=== PATIENT | male | born 1965 | race Caucasian/White ===

== ENCOUNTER 2018-03-28 12:18 | Inpatient (IN) | payer MEDICARE, OTHER ==
[~2018-03-28] VITALS: Ht 167.6 cm; Wt 73.0 kg
[2018-03-28] VITALS (25 sets, daily range): BP systolic 74–113; BP diastolic 53–90; PULSE 94–129; RESP 13–27; Ht 167.6 cm; Wt 73.0 kg
[2018-03-28] MEDS ORDERED: SODIUM CHLORIDE 0.9% 1L BAG IV* STA (12:31)
[2018-03-28] MEDS ORDERED: ONDANSETRON 4 MG INJ IV STA (12:40)
[2018-03-28] MEDS ORDERED: CEFTRIAXONE 1 GM/50 ML (PMX) 50 ML IVPB ONE (13:00)
[2018-03-28] MEDS ORDERED: OXYCODONE/ACETAMINOPHEN (5/325) TAB PO ONE (13:00)
[2018-03-28] MEDS ORDERED: IBUPROFEN 600 MG TAB PO ONE (13:00)
--- NOTE | 2018-03-28 13:18 | ERD ---
ER Documentation Chief Complaint Chief Complaint Near syncope, swollen hands and feet HPI 52-year-old man with a history of gastric carcinoma status post gastrectomy a few years ago presents with 1 month increasing bilateral lower extremity edema, mid abdominal discomfort which is been nonradiating and nonexertional, intermittent vomiting on a daily basis and he states today he had a syncopal episode while in the bathroom about 2 days of tactile fevers and generalized weakness.. Patient denies head trauma, no chest pain or shortness of breath, no cough or URI symptoms, no headache or blurry vision, no neck pain or stiffness. ROS All systems reviewed and are negative except as per history of present illness. Medications Home Meds Reported Medications Mirtazapine* (Mirtazapine*) 30 Mg Tablet, 30 MG PO HS, TAB 03/28/18 Allergies Allergies: Coded Allergies: No Known Allergy (Unverified , 03/28/18) PMhx/Soc Gastric carcinoma status post gastrectomy History of Surgery: Yes (stomach surgery r/t ca) Hx Cardiac Disorders: Yes (htn) Hx Miscellaneous Medical Probl: Yes (stomach CA) Hx Alcohol Use: No Hx Substance Use: No Hx Tobacco Use: No Smoking Status: Never smoker FmHx Family History: No diabetes Physical Exam Vitals Vital Signs Date Temp Pulse Resp B/P (MAP) Pulse Ox O2 O2 Flow FiO2 Time Delivery Rate 03/28/18 100.0 121 17 82/68 (73) 100 Room Air 15:37 03/28/18 123 18 88/65 (73) 100 Room Air 15:20 03/28/18 100.1 120 19 73/54 (60) 97 Room Air 14:57 03/28/18 124 17 70/52 (58) 99 Room Air 14:21 03/28/18 101.1 131 17 76/56 (63) 100 Room Air 14:03 03/28/18 145 24 116/88 100 Room Air 13:27 (97) 03/28/18 103.6 13:04 03/28/18 103.6 134 23 88/60 (69) 98 Room Air 12:28 03/28/18 103.0 133 20 71/58 (62) 100 12:26 Physical Exam GENERAL: Well-developed, dehydrated, febrile HEENT: Dry mucous membranes, pale conjunctiva, no Kernig sign, no jaundice or icterus, no submandibular induration, and no pharyngeal erythema NEURO: Alert and oriented 3, cranial nerves II through XII intact bilaterally, pupils equal round reactive to light, no focal deficits or facial asymmetry, sensation intact distally Strength 5/5 in upper and lower extremities bilaterally CARDIAC: Tachycardic and regular, no murmurs rubs or gallops LUNGS: Clear bilaterally no wheezing crackles or stridor ABDOMEN: Soft nontender, no guarding, no rigidity, no rebound, no psoas sign no obturator sign. SKIN: Warm and dry to touch, no abrasions, contusions, or hematomas, no lacerations, no ecchymosis, no target lesions, and without ulcers EXTREMITIES: No clubbing cyanosis, 3+ pitting edema in the lower extremities bilaterally as well as dependent edema to the upper extremities, calves are bilaterally symmetrical, no Homans sign, no popliteal cord sign. Distal pulses equal and bilateral PSYCH: Normal affect without agitation or irritability Result Diagram: 03/28/18 1255 03/28/18 1255 Results 24 hrs Laboratory Tests Test 03/28/18 12:46 03/28/18 12:55 03/28/18 15:08 POC Venous Lactate 9.8 mmol/L White Blood Count 1.7 10^3/ul Red Blood Count 2.65 10^6/ul Hemoglobin 8.2 g/dl Hematocrit 24.9 % Mean Corpuscular Volume 94.0 fl Mean Corpuscular Hemoglobin 30.9 pg Mean Corpuscular 32.9 g/dl Hemoglobin Concent Red Cell Distribution Width 19.3 % Platelet Count 206 10^3/UL Mean Platelet Volume 9.8 fl Immature Granulocytes % 0.600 % Neutrophils % % Segmented Neutrophils % (Manual) 25 % Band Neutrophils % (Manual) 48 % Lymphocytes % % Lymphocytes % (Manual) 4 % Reactive Lymphocytes % (Manual) 2 % Monocytes % % Monocytes % (Manual) 3 % Eosinophils % % Basophils % % Metamyelocytes % (manual) 12 % Myelocytes % (Manual) 7 % Nucleated Red Blood Cells % 1 % Immature Granulocytes # 0.010 10^3/ul Neutrophils # 10^3/ul Neutrophils # (Manual) 0.4 10^3/ul Band Neutrophils # 0.8 10^3/ul Lymphocytes (Manual) 0.0 10^3/ul Lymphocytes # 10^3/ul Reactive Lymphocytes # 0.0 10^3/ul Monocytes # 10^3/ul Monocytes # (Manual) 0.0 10^3/ul Eosinophils # 10^3/ul Basophils # 10^3/ul Metamyelocytes # 0.2 10^3/ul Myelocytes # 0.1 10^3/ul Nucleated Red Blood Cells # 10^3/ul White Cell Morphology Comment @See below Platelet Estimate NORMAL Giant Platelets 5 % Polychromasia 1+ Hypochromasia 1+ Poikilocytosis 2+ Anisocytosis 2+ Macrocytosis 2+ Target Cells 1+ Red Cell Morphology Comment @See below Prothrombin Time 28.7 Sec Prothrombin Time Ratio 2.2 INR International 2.70 Normalized Ratio Activated Partial Thromboplast 49.2 Sec Time Sodium Level 131 mmol/L Potassium Level 4.3 mmol/L Chloride Level 98 mmol/L Carbon Dioxide Level 18 mmol/L Anion Gap 15 Blood Urea Nitrogen 9 mg/dl Creatinine 1.46 mg/dl Est Glomerular Filtrat 50 mL/min Rate mL/min Glucose Level 79 mg/dl Lactic Acid Level 13.0 mmol/L Calcium Level 7.2 mg/dl Total Bilirubin 0.5 mg/dl Direct Bilirubin 0.00 mg/dl Indirect Bilirubin 0.5 mg/dl Aspartate Amino 33 IU/L Transf (AST/SGOT) Alanine 18 IU/L Aminotransferase (ALT/SGPT) Alkaline Phosphatase 83 IU/L Troponin I < 0.012 ng/ml Total Protein 4.1 g/dl Albumin 1.4 g/dl Globulin 2.70 g/dl Albumin/Globulin Ratio 0.51 Lipase < 10 U/L Urine Color MELO Urine Clarity CLOUDY Urine pH 5.0 Urine Specific [place] 1.019 Urine Ketones TRACE mg/dL Urine Nitrite NEGATIVE mg/dL Urine Bilirubin 1+ mg/dL Urine Urobilinogen 2+ mg/dL Urine Leukocyte Esterase NEGATIVE Radha/ul Urine Microscopic RBC 5 /HPF Urine Microscopic WBC 5 /HPF Urine Bacteria FEW /HPF Urine Hyaline Casts FEW /HPF Urine Mucus FEW /HPF Urine Hemoglobin NEGATIVE mg/dL Urine Glucose NEGATIVE mg/dL Urine Total Protein 2+ mg/dl Current Medications Medications Dose Sig/Reina Start Time Status Last (Trade) Ordered Route PRN Stop Time Admin Dose Reason Admin Sodium 3,000 ml BOLUS OVER 2 03/28/18 DC 03/28/18 Chloride HOURS STAT 12:31 13:05 (NS) IV* 03/28/18 12:32 Ondansetron 4 mg ONCE STAT 03/28/18 DC 03/28/18 HCl (Zofran IV 12:40 13:04 Inj) 03/28/18 12:45 Ceftriaxone 50 ml @ ONCE ONCE 03/28/18 DC 03/28/18 Sodium 100 mls/hr IVPB 13:00 13:05 03/28/18 13:29 Ibuprofen 600 mg ONCE ONCE 03/28/18 DC 03/28/18 (Motrin) PO 13:00 13:04 03/28/18 13:01 Oxycodone/ 1 tab ONCE ONCE 03/28/18 DC 03/28/18 Acetaminophen PO 13:00 13:04 (Percocet 03/28/18 13:01 (5/ 325)) 10 mg ONCE ONCE 03/28/18 DC 03/28/18 Metoclopramid IV 14:00 14:01 e HCl 03/28/18 14:01 (Reglan) 250 ml @ ONCE STAT 03/28/18 03/28/18 Norepinephrin 7.5 mls/hr IV 14:08 14:32 e 03/29/18 23:27 Sodium 1,000 ml @ Q20M ONCE 03/28/18 DC 03/28/18 Chloride 3,000 mls/hr IV 15:00 14:57 03/28/18 15:19 IV Flush 3 ml PER 03/28/18 UNV (NS 3 ml) PROTOCOL IV 16:00 Ondansetron 4 mg Q6H PRN 03/28/18 UNV HCl (Zofran IV NAUSEA 16:00 Inj) AND/OR VOMITING 650 mg Q6H PRN 03/28/18 UNV Acetaminophen PO PAIN 16:00 (Tylenol LEVEL 1-3 OR Tab) FEVER 1 tab Q6H PRN 03/28/18 UNV Acetaminophen PO MODERATE 16:00 / PAIN LEVEL Hydrocodone 4-6 Bitart ([place] (5/325)) Morphine 2 mg Q4H PRN 03/28/18 UNV Sulfate IV SEVERE 16:00 (morphine) PAIN LEVEL 7-10 Docusate 100 mg Q12H PRN 03/28/18 UNV Sodium PO 16:00 (Colace) CONSTIPATION Magnesium 30 ml DAILY PRN 03/28/18 UNV Hydroxide PO 16:00 (Milk Of Mag) CONSTIPATION Famotidine 20 mg Q12 IV 03/28/18 UNV (Pepcid Iv) 21:00 Lorazepam 0.5 mg Q6H PRN 03/28/18 UNV (Ativan) IV ANXIETY 16:00 Sodium 1,000 ml @ Q10H IV 03/28/18 UNV Chloride 100 mls/hr 15:51 Albuterol/ 3 ml Q4H RESP 03/28/18 UNV Ipratropium THERAPY PRN 16:00 (Duoneb) HHN SHORTNESS OF BREATH Vancomycin VANCOMYCIN NOTE XX 03/28/18 UNV HCl (Vanco PER PHARMACY 16:00 Iv Per Pharmacy) Hydralazine 10 mg Q6H PRN 03/28/18 UNV HCl IV ELEVATED 16:00 (Apresoline) BLOOD PRESSURE 1 tab Q5M PRN 03/28/18 UNV Nitroglycerin SL ANGINA 16:00 (Nitroglyceri n (Sl Tab) 0.4 Mg) Cefepime HCl 50 ml @ Q8 IVPB 03/28/18 UNV 100 mls/hr 22:00 250 ml @ TITRATE IV 03/28/18 UNV Norepinephrin 0.47 mls/hr 16:00 e 32 mg/Dextrose Procedures/MDM IV line was established patient was placed on security monitor rhythm strip rev ealed a sinus tachycardia at 130 bpm with upright P and T waves. Patient was febrile. Blood and urine cultures have been ordered results are pending I will follow-up. EKG performed, read by me revealed sinus tachycardia at 135 bpm, normal axis, narrow QRS complex, no concerning ST elevations or depressions noted 1 view chest x-ray performed, read by me reveals left lower lobe infiltrate and effusion with a calcification in the right lower lung, this may be a mass or metastasis Patient was initially hypotensive and I administered about 5 L normal saline IV, ibuprofen 600 mg p.o. for fever, Percocet 1 tablet p.o. for pain control, and Zofran 4 mg IV for nausea and vomiting, the patient later received metoclopramide 10 mg IV for continued vomiting. I also administered ceftriaxone 1 g IV x1. CBC was abnormal with a leukopenia less than 2 and mild anemia, electrolytes were unremarkable although calcium was low, liver function tests normal, troponin negative. Urinalysis was negative for infection. Lactic acid elevated at about 10 consistent with severe dehydration and sepsis. Central Line Placement by me: After the patient was consented and a time out was performed, appropriate hand hygiene was performed, the skin site was fully prepped and maximal sterile barrier technique was employed where the patient was sterilely draped, and the provider wore a mask and sterile gown and gloves. Anesthesia: 1% lidocaine locally Location: Right subclavian vein Device: Multiple lumen Technique: Seldinger technique. Secured with suture. Results: Venous return from all ports with easy saline flush. No complications. The entire guide wire retrieved and disposed of. ED Ultrasound: Central line placed by me using concurrent ultrasound guidance done using sterile technique. Real time image archived in the medical record confirms vascular anatomy. Repeat chest X-ray 1V Interpreted by me: Central line in SVC, Normal soft tissue, No evidence of pneumothorax. Again there is a left lower pleural effusion and infiltrate as well as a possible mass to the right lower lung CT scan of the abdomen and pelvis has been ordered results, IMPRESSION: *Exam is very limited without the use of intravenous contrast.* Highly recommend repeat examination with IV contrast when clinically feasible. If patient cannot receive contrast, then recommend obtaining an MRI of the abdomen/pelvis. Evidence of volume overload with interstitial edema, pleural effusions and large volume ascites. There is small bowel dilation with wall thickening, likely ileus and reactive changes from the ascites. Postsurgical changes involving the distal esophagus and in the left upper quadrant. Age-indeterminate compression deformity of the L1 vertebral body. Diffuse hepatic steatosis. Patient had to be placed on a norepinephrine drip for continued hypotension and is not stable at this time for further CT imaging although CT scan will have to be repeated with IV contrast and patient is more stable Patient's infectious symptoms have not stabilized and the patient is at risk of rapid decompensation. The patient will be admitted for careful hydration, antibiotic therapy, and infectious source control. SEVERE SEPSIS CRITERIA: Infectious source: Pulmonary and possibly gastrointestinal End organ damage indicated by: [Lactate > 2.0 mmol/L Hypotension (SBP < 90 or >40 mmHG drop or MAP < 65) SEPSIS MANAGEMENT Time of recognition of sepsis: Upon arrival. Time of recognition of severe sepsis: severe sepsis at this time. Time of recognition of septic shock: septic shock at this time. 3 HOUR BUNDLE Blood cultures x 2 before broad-spectrum antibiotics: Yes 30 ml/kg NS bolus completed Initial lactate 10 Repeat lactate 13 SEPTIC SHOCK ASSESSMENT: Yes lactic acid > 4.0 Yes persistent hypotension (SBP < 90 or 40 mmHg drop, MAP < 65) despite 30 mL/kg IV fluid bolus VOLUME REASSESSMENT FOR SEPTIC SHOCK: Reevaluation Time: 1600 Temp 98.7, BP 90/60, heart rate 110 bpm, respiratory rate 18 breaths/min, oxygen saturation 100% Heart tachycardic and regular Lungs mild bilateral crackles, no wheezing or stridor Skin warm & dry Cap Refill less than 2 seconds Peripheral pulses radially present PERSISTENT HYPOTENSION TREATMENT: Comfort care no Central line placed Vasopressor started with a norepinephrine drip I considered further perfusion assessment with CVP measurement, SCVO2, bedside ultrasound volume assessment, passive leg raise, trial of further fluid bolus. And proceeded with 30 ml/kg fluid bolus of NSS, broad spectrum antibiotics, and admission. CRITICAL CARE: Critical care time 55 minutes, this was time separate from other billable procedures. Emergent fluid management while maintaining close respiratory support. Provision of immediate and broad-spectrum antibiotic therapy. Simultaneous assessment for possible sources in order to direct targeted therapy. Consideration for invasive and chemical support to prevent cardiopulmonary collapse. Critical care time is independent of procedures performed. Accepting Care Team: Current data and ongoing care discussed. Time: Time of admission Primary Provider: Infectious disease, possibly surgery Consulting: Hospitalist Outstanding Data: none Departure Diagnosis: Primary Impression: Syncope Syncope type: unspecified Qualified Codes: R55 - Syncope and collapse Additional Impressions: Gastric carcinoma Septic shock Vomiting Vomiting type: unspecified Vomiting Intractability: intractable Nausea presence: with nausea Qualified Codes: R11.2 - Nausea with vomiting, unspecified Anemia Anemia type: unspecified type Qualified Codes: D64.9 - Anemia, unspecified Pleural effusion Ascites Ascites type: malignant Qualified Codes: R18.0 - Malignant ascites Condition: Critical JAYA ABREU MD Mar 28, 2018 13:18
[2018-03-28] MEDS ORDERED: MIRT30TA5 PO (13:45)
[2018-03-28] MEDS ORDERED: METOCLOPRAMIDE 10 MG INJ IV ONE (14:00)
[2018-03-28] MEDS ORDERED: NORepinephrine 8MG/250 ML (PMX 250 ML IV STA (14:08)
--- NOTE | 2018-03-28 14:39 | NUR ---
1325 PT NOT STABLE, TACHY. 1350 NEEDS MEDS, VOMITING. 1430 NOT READY, CENTRAL LINE PLACEMENT. NWC WHEN READY FOR CT.
[2018-03-28] MEDS ORDERED: SOD CHLORIDE 0.9% 1,000 ML IV ONE (15:00)
[2018-03-28] MEDS ORDERED: DOCUSATE SODIUM 100 MG CAP PO PRN (16:00)
[2018-03-28] MEDS ORDERED: NITROGLYCERIN (SL) 0.4 MG TAB SL PRN (16:00)
[2018-03-28] MEDS ORDERED: NACL 0.9% 3 ML SYG IV SCH (16:00)
[2018-03-28] MEDS ORDERED: hydrALAzine 20 MG INJ IV PRN (16:00)
[2018-03-28] MEDS ORDERED: morphine 4 MG/ML VIAL IV PRN (16:00)
[2018-03-28] MEDS ORDERED: ONDANSETRON 4 MG INJ IV PRN (16:00)
[2018-03-28] MEDS ORDERED: LORAZEPAM 2 MG INJ IV PRN (16:00)
[2018-03-28] MEDS ORDERED: HYDROCODONE/APAP (5/325) TAB PO PRN (16:00)
[2018-03-28] MEDS ORDERED: ALBUTEROL/IPRATROPIUM (NEB) 3 ML AMP HHN PRN (16:00)
[2018-03-28] MEDS ORDERED: ACETAMINOPHEN 325 MG TAB PO PRN (16:00)
[2018-03-28] MEDS ORDERED: VANCOMYCIN IV PER PHARMACY XX SCH (16:00)
[2018-03-28] MEDS ORDERED: MAGNESIUM HYDROXIDE 30ML CUP PO PRN (16:00)
--- NOTE | 2018-03-28 16:31 | CONS ---
Date/Time of Note Date/Time of Note DATE: 03/28/18 TIME: 16:23 Assessment/Plan Assessment/Plan Assessment/Plan very unfortunate catastrophically ill 52 m with h/o gastric cancer s/p partial resection reportedly in remission x 2 years. he is now admitted with a 2 month h/so of severe wekness and abd pain with albumin of 1.4 and a 3 days h/o of fever, vomiting and syncope presumed secndary to sepsis likely superimposed on maliganancy with severe malnutrition.he has severe hypotension, tachycardia. he was noted to have an elevated cr 1.4 with severe lactic acidosis and mild hyponatremia and hence renal consult I suspect his lactic acidosis is due to severe hypoperfusion due to hypotension secondary to intravascular volume depletion due to vomiting and reduction in cireculating effective blood volume due to 3rd spacing ass with severe hypoalbuminemia. r/o sepsis / ATN/ underlying malignancy * agressive hydration * start albumin q6 hrs * pressors to keep sbp>90 * urine lytes * ct abdomen when stable * abx/ panculture * monitor exam/labs * prognosis very gaurded * dw family Result Diagram: 03/28/18 1255 03/28/18 1255 Results 24hrs Laboratory Tests Test 03/28/18 12:46 03/28/18 12:55 03/28/18 15:08 POC Venous Lactate 9.8 *H White Blood Count 1.7 L Red Blood Count 2.65 L Hemoglobin 8.2 L Hematocrit 24.9 L Mean Corpuscular Volume 94.0 Mean Corpuscular Hemoglobin 30.9 Mean Corpuscular Hemoglobin Concent 32.9 Red Cell Distribution Width 19.3 H Platelet Count 206 Mean Platelet Volume 9.8 Immature Granulocytes % 0.600 H Neutrophils % Segmented Neutrophils % (Manual) 25 L Band Neutrophils % (Manual) 48 H Lymphocytes % Lymphocytes % (Manual) 4 L Reactive Lymphocytes % (Manual) 2 H Monocytes % Monocytes % (Manual) 3 Eosinophils % Basophils % Metamyelocytes % (manual) 12 H Myelocytes % (Manual) 7 H Nucleated Red Blood Cells % 1 H Immature Granulocytes # 0.010 Neutrophils # Neutrophils # (Manual) 0.4 L Band Neutrophils # 0.8 H Lymphocytes (Manual) 0.0 L Lymphocytes # Reactive Lymphocytes # 0.0 Monocytes # Monocytes # (Manual) 0.0 L Eosinophils # Basophils # Metamyelocytes # 0.2 H Myelocytes # 0.1 H Nucleated Red Blood Cells # White Cell Morphology Comment @See below Platelet Estimate NORMAL Giant Platelets 5 H Polychromasia 1+ Hypochromasia 1+ Poikilocytosis 2+ Anisocytosis 2+ Macrocytosis 2+ Target Cells 1+ Red Cell Morphology Comment @See below Prothrombin Time 28.7 H Prothrombin Time Ratio 2.2 INR International Normalized Ratio 2.70 Activated Partial Thromboplast Time 49.2 H Sodium Level 131 L Potassium Level 4.3 Chloride Level 98 Carbon Dioxide Level 18 L Anion Gap 15 H Blood Urea Nitrogen 9 Creatinine 1.46 H Est Glomerular Filtrat Rate mL/min 50 L Glucose Level 79 Lactic Acid Level 13.0 *H Calcium Level 7.2 L Total Bilirubin 0.5 Direct Bilirubin 0.00 Indirect Bilirubin 0.5 Aspartate Amino Transf (AST/SGOT) 33 Alanine Aminotransferase (ALT/SGPT) 18 Alkaline Phosphatase 83 Troponin I < 0.012 Total Protein 4.1 L Albumin 1.4 L Globulin 2.70 Albumin/Globulin Ratio 0.51 Lipase < 10 L Urine Color MELO Urine Clarity CLOUDY A Urine pH 5.0 Urine Specific [place] 1.019 Urine Ketones TRACE A Urine Nitrite NEGATIVE Urine Bilirubin 1+ H Urine Urobilinogen 2+ H Urine Leukocyte Esterase NEGATIVE Urine Microscopic RBC 5 Urine Microscopic WBC 5 Urine Bacteria FEW A Urine Hyaline Casts FEW A Urine Mucus FEW A Urine Hemoglobin NEGATIVE Urine Glucose NEGATIVE Urine Total Protein 2+ H Consultation Date/Type/Reason Admit Date/Time Reason for Consultation elevated cr, low uo, lactic acidosis Hx of Present Illness catastrophically ill ill 52 m with known gastric cancer s/p gastrectomy/ chemo and xrt 3 years ago. reportedly in remission x 2 years . was well until 2 months ago when he started to complain of abd discomfort, weakness, and le swelling. he did not seek medical attention. about 3 days ago, he started having severe weakness, fevers, chills and intractable vomiting. he eventually had a syncopal episode and was ottoniel pt was noted to be severely hypotensive and tachycardic. labs revealed hyponatremia, elevated cr 1.4 and severe lactic acidosis with albumin of 1.4, severe aneemia and leucopenia and hence renal consult . he has received 5 l of ns with minimal imrovement in bp and has been started on lev ophed. he remains lethargic, moaning and febrile. unable to obtain Past Medical History Medical History: other (gastric cancer s/p resection 2015) Medications Current Medications Norepinephrine 250 ml @ 7.5 mls/hr ONCE STAT IV Last administered on 03/28/18at 14:32; Admin Dose 7.5 MLS/HR; Start 03/28/18 at 14:08; Stop 03/29/18 at 23:27 IV Flush (NS 3 ml) 3 ml PER PROTOCOL IV ; Start 03/28/18 at 16:00; Status UNV Ondansetron HCl (Zofran Inj) 4 mg Q6H PRN IV NAUSEA AND/OR VOMITING; Start 03/28/18 at 16:00; Status UNV Acetaminophen (Tylenol Tab) 650 mg Q6H PRN PO PAIN LEVEL 1-3 OR FEVER; Start 03/28/18 at 16:00; Status UNV Acetaminophen/ Hydrocodone Bitart ([place] (5/325)) 1 tab Q6H PRN PO MODERATE PAIN LEVEL 4-6; Start 03/28/18 at 16:00; Status UNV Morphine Sulfate (morphine) 2 mg Q4H PRN IV SEVERE PAIN LEVEL 7-10; Start 03/28/18 at 16:00; Status UNV Docusate Sodium (Colace) 100 mg Q12H PRN PO CONSTIPATION; Start 03/28/18 at 16:00; Status UNV Magnesium Hydroxide (Milk Of Mag) 30 ml DAILY PRN PO CONSTIPATION; Start 03/28/18 at 16:00; Status UNV Famotidine (Pepcid Iv) 20 mg Q12 IV ; Start 03/28/18 at 21:00; Status UNV Lorazepam (Ativan) 0.5 mg Q6H PRN IV ANXIETY; Start 03/28/18 at 16:00; Status UNV Sodium Chloride 1,000 ml @ 100 mls/hr Q10H IV ; Start 03/28/18 at 15:51; Status UNV Albuterol/ Ipratropium (Duoneb) 3 ml Q4H RESP THERAPY PRN HHN SHORTNESS OF BREATH; Start 03/28/18 at 16:00; Status UNV Vancomycin HCl (Vanco Iv Per Pharmacy) VANCOMYCIN PER PHARMACY NOTE XX ; Start 03/28/18 at 16:00; Status UNV Hydralazine HCl (Apresoline) 10 mg Q6H PRN IV ELEVATED BLOOD PRESSURE; Start 03/28/18 at 16:00; Status UNV Nitroglycerin (Nitroglycerin (Sl Tab) 0.4 Mg) 1 tab Q5M PRN SL ANGINA; Start 03/28/18 at 16:00; Status UNV Cefepime HCl 50 ml @ 100 mls/hr Q8 IVPB ; Start 03/28/18 at 22:00; Status UNV Norepinephrine 32 mg/Dextrose 250 ml @ 0.47 mls/hr TITRATE IV ; Start 03/28/18 at 16:00; Status UNV Allergies: Coded Allergies: No Known Allergy (Unverified , 03/28/18) Past Surgical History Past Surgical Hx: other (gastrectomy) Family History Significant Family History: no pertinent family hx Social History Alcohol Use: none Smoking Status: Never smoker Exam/Review of Systems Vital Signs Vitals Vital Signs Date Temp Pulse Resp B/P (MAP) Pulse Ox O2 O2 Flow FiO2 Time Delivery Rate 03/28/18 100.0 121 17 82/68 (73) 100 Room Air 15:37 Exam Constitutional: distress, frail, other (lethargic) Head: normocephalic, other (dry mm) Eyes: nl conjunctiva Neck: supple, jvd Respiratory: diminished breath sounds Cardiovascular: regular rate and rhythm, edema (2+ edema/ [place]), other (tachcardia) Medications Medications Current Medications Norepinephrine 250 ml @ 7.5 mls/hr ONCE STAT IV Last administered on 03/28/18at 14:32; Admin Dose 7.5 MLS/HR; Start 03/28/18 at 14:08; Stop 03/29/18 at 23:27 IV Flush (NS 3 ml) 3 ml PER PROTOCOL IV ; Start 03/28/18 at 16:00; Status UNV Ondansetron HCl (Zofran Inj) 4 mg Q6H PRN IV NAUSEA AND/OR VOMITING; Start 03/28/18 at 16:00; Status UNV Acetaminophen (Tylenol Tab) 650 mg Q6H PRN PO PAIN LEVEL 1-3 OR FEVER; Start 03/28/18 at 16:00; Status UNV Acetaminophen/ Hydrocodone Bitart ([place] (5/325)) 1 tab Q6H PRN PO MODERATE PAIN LEVEL 4-6; Start 03/28/18 at 16:00; Status UNV Morphine Sulfate (morphine) 2 mg Q4H PRN IV SEVERE PAIN LEVEL 7-10; Start 03/28/18 at 16:00; Status UNV Docusate Sodium (Colace) 100 mg Q12H PRN PO CONSTIPATION; Start 03/28/18 at 16:00; Status UNV Magnesium Hydroxide (Milk Of Mag) 30 ml DAILY PRN PO CONSTIPATION; Start 03/28/18 at 16:00; Status UNV Famotidine (Pepcid Iv) 20 mg Q12 IV ; Start 03/28/18 at 21:00; Status UNV Lorazepam (Ativan) 0.5 mg Q6H PRN IV ANXIETY; Start 03/28/18 at 16:00; Status UNV Sodium Chloride 1,000 ml @ 100 mls/hr Q10H IV ; Start 03/28/18 at 15:51; Status UNV Albuterol/ Ipratropium (Duoneb) 3 ml Q4H RESP THERAPY PRN HHN SHORTNESS OF BREATH; Start 03/28/18 at 16:00; Status UNV Vancomycin HCl (Vanco Iv Per Pharmacy) VANCOMYCIN PER PHARMACY NOTE XX ; Start 03/28/18 at 16:00; Status UNV Hydralazine HCl (Apresoline) 10 mg Q6H PRN IV ELEVATED BLOOD PRESSURE; Start 03/28/18 at 16:00; Status UNV Nitroglycerin (Nitroglycerin (Sl Tab) 0.4 Mg) 1 tab Q5M PRN SL ANGINA; Start 03/28/18 at 16:00; Status UNV Cefepime HCl 50 ml @ 100 mls/hr Q8 IVPB ; Start 03/28/18 at 22:00; Status UNV Norepinephrine 32 mg/Dextrose 250 ml @ 0.47 mls/hr TITRATE IV ; Start 03/28/18 at 16:00; Status UNV DEBBIE LOCKWOOD MD Mar 28, 2018 16:31
[2018-03-28] MEDS: ALBUMIN HUMAN 25% 100 ML IV SCH (17:23)
[2018-03-28] MEDS: NORepinephrine 32 MG in DEXTROSE 5% 218 ML IV SCH (17:24)
--- NOTE | 2018-03-28 18:06 | NUR ---
RECEIVE PT FROM ER. ADMITTED FOR SEPTIC SHOCK. LACTIC ACID 11.4 NOW TRENDING Q 6HRS AND SBP IN THE 70'S. PT ON LEVOPHED MAXED OUT, PENDING NEOSYNEPHRINE INFUSION. HR IN THE 120'S. PT ALREADY ON ABX. PT IS ALERT BUT VERY LETHARGIC. PICTURE TAKEN SACROCOCCYX AND BILATERAL HEELS. STAGE 2 NOTED ON COCCYX. NOTED PETECHIA ON PT'S ABDOMEN AND TRUNK. DR MARQUEZ AWARE ALREADY. WILL PUT IN FOR WOUND CONSULT. MRSA OF [place] COLLECTED AND SENT TO LAB. PT'S HEIGHT AND WEIGH COLLECTED AND ENTERED.REPORT GIVEN TO ONCOMING RN MARIA ESTHER SHE VERBALIZES UNDERSTANDING FOR CONTINUITY OF CARE
--- NOTE | 2018-03-28 18:32 | HP ---
Date/Time of Note Date/Time of Note DATE: 03/28/18 TIME: 18:18 Assessment/Plan VTE Prophylaxis SCD applied (from Nsg): Yes Pharmacological prophylaxis: other Lines/Catheters IV Catheter Type (from Nrsg): Central Line Central line still needed: Yes Urinary Cath still in place: Yes Reason Cath still needed: urinary retention Assessment/Plan Hospital Course CT abdomen pelvis: IMPRESSION: *Exam is very limited without the use of intravenous contrast.* Highly jon mmend repeat examination with IV contrast when clinically feasible. If patient cannot receive contrast, then recommend obtaining an MRI of the abdomen/pelvis. Evidence of volume overload with interstitial edema, pleural effusions and large volume ascites. There is small bowel dilation with wall thickening, likely ileus and reactive changes from the ascites. Postsurgical changes involving the distal esophagus and in the left upper quadrant. Age-indeterminate compression deformity of the L1 vertebral body. Diffuse hepatic steatosis. Assessment and plan: 52-year-old male presenting with severe weakness, vomiting , with signs of septic shock, now on pressor support, and severe lactic acidosis. #Weakness vomiting + septic shock- again likely secondary to upper respiratory infection/pneumonia. Patient with severe hypotension/shock and lactic acidosis likely secondary to severe hypoperfusion/third spacing (ascities) + intravascular volume depletion (vomiting). Also with findings of low albumin. -Continue broad-spectrum antibiotics, get infectious disease consult, check TSH A1c lipid panel, continue pressor support x 2 -Trend lactic acid, aggressive IV fluid hydration -We will follow final culture results -Per renal team, albumin ordered as well #History of gastric cancer: Status post gastrectomy at least 2 years ago. Per family he has not received any chemotherapy or radiation over the last 2 years apparently. -CT abdomen pelvis findings, will consider for paracentesis and send fluid for study analysis -Continue broad-spectrum antibiotics -We will get hematology oncology consult #Renal insufficiency: Again secondary to septic shock and intravascular volume depletion. -Pressors, fluids, follow-up renal rec's, monitor urine output, f/u BMP in AM Result Diagram: 03/28/18 1611 03/28/18 1255 Results 24hrs Laboratory Tests Test 03/28/18 12:46 03/28/18 12:55 03/28/18 15:08 03/28/18 16:11 POC Venous Lactate 9.8 *H White Blood Count 1.7 L Red Blood Count 2.65 L Hemoglobin 8.2 L Hematocrit 24.9 L Mean Corpuscular 94.0 Volume Mean Corpuscular 30.9 Hemoglobin Mean Corpuscular 32.9 Hemoglobin Concent Red Cell 19.3 H Distribution Width Platelet Count 206 165 Mean Platelet Volume 9.8 Immature 0.600 H Granulocytes % Neutrophils % Segmented 25 L Neutrophils % (Manual) Band Neutrophils % 48 H (Manual) Lymphocytes % Lymphocytes % 4 L (Manual) Reactive Lymphocytes 2 H % (Manual) Monocytes % Monocytes % (Manual) 3 Eosinophils % Basophils % Metamyelocytes % 12 H (manual) Myelocytes % 7 H (Manual) Nucleated Red Blood 1 H Cells % Immature 0.010 Granulocytes # Neutrophils # Neutrophils # 0.4 L (Manual) Band Neutrophils # 0.8 H Lymphocytes (Manual) 0.0 L Lymphocytes # Reactive Lymphocytes 0.0 # Monocytes # Monocytes # (Manual) 0.0 L Eosinophils # Basophils # Metamyelocytes # 0.2 H Myelocytes # 0.1 H Nucleated Red Blood Cells # White Cell @See below Morphology Comment Platelet Estimate NORMAL Giant Platelets 5 H Polychromasia 1+ Hypochromasia 1+ Poikilocytosis 2+ Anisocytosis 2+ Macrocytosis 2+ Target Cells 1+ Red Cell Morphology @See below Comment Prothrombin Time 28.7 H 36.4 #H Prothrombin Time 2.2 2.8 Ratio INR International 2.70 3.66 Normalized Ratio Activated 49.2 H 63.9 H Partial Thromboplast Time Sodium Level 131 L Potassium Level 4.3 Chloride Level 98 Carbon Dioxide Level 18 L Anion Gap 15 H Blood Urea Nitrogen 9 Creatinine 1.46 H Est Glomerular 50 L Filtrat Rate mL/min Glucose Level 79 Lactic Acid Level 13.0 *H 11.4 *H Calcium Level 7.2 L Total Bilirubin 0.5 Direct Bilirubin 0.00 Indirect Bilirubin 0.5 Aspartate Amino 33 Transf (AST/SGOT) Alanine 18 Aminotransferase (AL T/SGPT) Alkaline Phosphatase 83 Troponin I < 0.012 Total Protein 4.1 L Albumin 1.4 L Globulin 2.70 Albumin/Globulin 0.51 Ratio Lipase < 10 L Urine Color MELO Urine Clarity CLOUDY A Urine pH 5.0 Urine Specific 1.019 [place] Urine Ketones TRACE A Urine Nitrite NEGATIVE Urine Bilirubin 1+ H Urine Urobilinogen 2+ H Urine Leukocyte NEGATIVE Esterase Urine Microscopic 5 RBC Urine Microscopic 5 WBC Urine Bacteria FEW A Urine Hyaline Casts FEW A Urine Mucus FEW A Urine Hemoglobin NEGATIVE Urine Glucose NEGATIVE Urine Total Protein 2+ H Thrombin Time 20.6 H Fibrinogen 83.0 L Plasma Fibrin Pending Degradation Products D-Dimer 2498.97 H D-Dimer Comment Hemoglobin A1c 5.2 Free Thyroxine 1.32 HPI/ROS Admit Date/Time Admit Date/Time Hx of Present Illness An unfortunate 52-year-old man with a history of gastric carcinoma status post gastrectomy a few years ago who presents today with vomiting and dehydration, syncopal event and with 1 month increasing bilateral lower extremity edema. Per family patient followed up at [facility] a few days ago and apparently "everything appeared to be normal". However patient went to the same ER 2 days ago, after complaining of lower extremity swelling, but was sent home after family again says that "everything appeared to be okay". In any event the patient came back today with the current symptoms as mentioned above. No upper or lower GI bleeding, diarrhea or constipation, arthralgias or myalgias. However when the patient came in he had significant lab abnormalities including fever of 104, hypotension systolic in the 70s, given 3-4 L of IV fluids in the ER, now on pressor support. Also tachycardic heart rate in the 120-130range. On CT scan patient also has findings of left lower lobe infiltrate, lactic acid was severely elevated initially 9, now 13. Central line has been placed. Patient also has renal insufficiency creatinine 1.4, and has been evaluated by the renal team as well was started patient on albumin in addition to the above orders. PMH/Family/Social Past Medical History Medical History: other (gastric cancer s/p resection) Medications Current Medications IV Flush (NS 3 ml) 3 ml PER PROTOCOL IV ; Start 03/28/18 at 16:00 Ondansetron HCl (Zofran Inj) 4 mg Q6H PRN IV NAUSEA AND/OR VOMITING; Start 03/28/18 at 16:00 Acetaminophen (Tylenol Tab) 650 mg Q6H PRN PO PAIN LEVEL 1-3 OR FEVER; Start 03/28/18 at 16:00 Acetaminophen/ Hydrocodone Bitart ([place] (5/325)) 1 tab Q6H PRN PO MODERATE PAIN LEVEL 4-6; Start 03/28/18 at 16:00 Morphine Sulfate (morphine) 2 mg Q4H PRN IV SEVERE PAIN LEVEL 7-10; Start 03/28/18 at 16:00 Docusate Sodium (Colace) 100 mg Q12H PRN PO CONSTIPATION; Start 03/28/18 at 16:00 Magnesium Hydroxide (Milk Of Mag) 30 ml DAILY PRN PO CONSTIPATION; Start 03/28/18 at 16:00 Famotidine (Pepcid Iv) 20 mg DAILY IV ; Start 03/28/18 at 21:00 Lorazepam (Ativan) 0.5 mg Q6H PRN IV ANXIETY; Start 03/28/18 at 16:00 Sodium Chloride 1,000 ml @ 125 mls/hr Q8H IV ; Start 03/28/18 at 15:51 Albuterol/ Ipratropium (Duoneb) 3 ml Q4H RESP THERAPY PRN HHN SHORTNESS OF BREATH; Start 03/28/18 at 16:00 Vancomycin HCl (Vanco Iv Per Pharmacy) VANCOMYCIN PER PHARMACY NOTE XX ; Start 03/28/18 at 16:00; Status UNV Hydralazine HCl (Apresoline) 10 mg Q6H PRN IV ELEVATED BLOOD PRESSURE; Start 03/28/18 at 16:00 Nitroglycerin (Nitroglycerin (Sl Tab) 0.4 Mg) 1 tab Q5M PRN SL ANGINA; Start 03/28/18 at 16:00 Cefepime HCl 50 ml @ 100 mls/hr Q12 IVPB ; Start 03/28/18 at 21:00 Norepinephrine 32 mg/Dextrose 250 ml @ 0.47 mls/hr TITRATE IV Last administered on 03/28/18at 17:24; Admin Dose 0.47 MLS/HR; Start 03/28/18 at 17:00 Albumin Human 100 ml @ 100 mls/hr Q6 IV Last administered on 03/28/18at 17:23; Admin Dose 100 MLS/HR; Start 03/28/18 at 18:00; Stop 03/29/18 at 06:59 Phenylephrine HCl 80 mg/Dextrose 250 ml @ 18.75 mls/ hr TITRATE IV ; Start 03/28/18 at 18:00 Coded Allergies: No Known Allergy (Unverified , 03/28/18) Past Surgical History Past Surgical Hx: other (gastrectomy) Family History Significant Family History: no pertinent family hx Social History Alcohol Use: none Smoking Status: Never smoker Drug Use: none Exam/Review of Systems Vital Signs Vitals Vital Signs Date Temp Pulse Resp B/P (MAP) Pulse Ox O2 O2 Flow FiO2 Time Delivery Rate 03/28/18 97.9 116 22 72/46 (55) 98 Nasal 2.0 17:34 Cannula Exam Exam GENERAL: Lying in bed, lethargic HEENT: Dry mucous membranes, pale conjunctiva, no pharyngeal erythema, otherwise PE RRL no focal deficits NECK: Supple NEURO: No focal deficits CARDIAC: Tachycardic and regular, no murmurs rubs or gallops LUNGS: Clear bilaterally no wheezing crackles or stridor ABDOMEN: Soft nontender, no guarding, no rigidity, no rebound, no psoas sign no obturator sign. SKIN: Mild petechial rash noted on the anterior thighs bilaterally EXTREMITIES: No clubbing cyanosis, 3+ pitting edema in the lower extremities bilaterally to the thighs as well as dependent edema to the upper extremities AMBERLY MARQUEZ Mar 28, 2018 18:29
[2018-03-28] MEDS: SOD CHLORIDE 0.9% 1,000 ML IV SCH (18:41)
[2018-03-28] MEDS: PHENYLephrine 80 MG in DEXTROSE 5% 242 ML IV SCH (19:29)
[2018-03-28] MEDS ORDERED: SOD CHLORIDE 0.9% 250 ML IV* ONE (19:30)
[2018-03-28] MEDS ORDERED: VANCOMYCIN HCL 1.5 GM in SOD CHLORIDE 0.9% 250 ML IVPB ONE (20:00)
--- NOTE | 2018-03-28 21:23 | NUR ---
DR. FRASER AWARE OF LACTIC ACID 12, PREVIOUS 11.4. NO NEW ORDERS RECEIVED, WILL CONTINUE TO MONITOR.
--- NOTE | 2018-03-28 21:26 | NUR ---
VANCOMYCIN PER RX Current ABXs: VANCOMYCIN, CEFEPIME 52 YO MALE; HT 5'6"; WT 73 KG Levels/Significant Labs: 03/28 SCR 1.46; WBC 1.7 Comments/Plan: VANCO 1.5 GM IV X1, THEN START VANCO 750 MG IV Q12H. Addendum: 03/29/18 at 0748 by [facility] Scr increased from 1.46 yesterday to 2 today Change vancomycin maintenance dose to 1 gram IVPB q24h starting tonight. Monitor renal function. Pharmacy to follow.
--- NOTE | 2018-03-28 21:31 | CONS ---
DATE OF ADMISSION: 03/28/2018 DATE OF CONSULTATION: 03/28/2018 TYPE OF CONSULTATION: Infectious Disease. REASON FOR CONSULTATION: Antibiotic management. HISTORY OF PRESENT ILLNESS: Basim Pittman is a 52-year-old gentleman with history of gastric carcinom a who comes in with near syncope and swollen hands and feet. His past problems include gastric carci noma, status post gastrectomy, a few years ago. The patient presents with a 1-month history of incre asing bilateral lower extremity edema and abdominal discomfort which is nonradiating and intermittent nausea and vomiting on a daily basis. He states he had a syncopal attack today while in the [facility] and has had about 2 days of tactile fevers and generalized weakness. Denies head trauma, shortness of breath. PAST MEDICAL HISTORY: As outlined. FAMILY HISTORY: Noncontributory. SOCIAL HISTORY: He does not smoke, drink or abuse drugs. ALLERGIES: NONE TO PENICILLIN, SULFA OR FOODS. MEDICATIONS: Per chart. REVIEW OF SYSTEMS: As per HPI. HOSPITAL COURSE: On admission, his temperature was 103.6. White count was 1.7 with 25% neutrophils and 48% bands in immature forms, so he is not absolutely neutropenic, but he has marked shift to the left with regards to his neutrophils. BUN and creatinine is 9/1.46 Sodium is 131, random glucose 79. His urine is negative for leukocyte esterase and nitrites. He has 5 white cells and 5 red cells pe r high powered field. The patient was started on vancomycin and cefepime. He is also on norepinephr ine. His chest x-ray shows right subclavian catheter tip in appropriate position, small left basilar airspace opacity representing atelectasis or pneumonia, small left pleural effusion, aortic atherosc lerotic calcifications, probable right pleural plaque. He has airspace opacification in the left tonie g, along with small to moderate left pleural accumulation, somewhat linear density projects lateral r ight mid to lower lung zone possibly representing calcific pleural plaquing, mild degenerative enthes opathy of the thoracic spine. A CT scan of the abdomen and pelvis was done, which was deemed to be v kimmy limited without the use of intravenous contrast, evidence of volume overload with interstitial ed darshan, pleural effusion, large volume ascites, small bowel dilatation with wall thickening likely ileus , reactive changes from the ascites, postsurgical changes involving the distal esophagus and left upp er quadrant, age indeterminate compression deformity of the L1 vertebral body and diffuse hepatic jesus atosis. PHYSICAL EXAMINATION: GENERAL: The patient is a well-developed and well-nourished male who is awake, responsive, in no acu te distress. VITAL SIGNS: T-max of 103.6. SKIN: Without generalized rash. HEENT: Within normal limits. NECK: Supple. LYMPH NODES: None palpable. CHEST: Decreased breath sounds at the bases. HEART: Tachycardic without murmur or gallop. ABDOMEN: Soft, nontender, without organosplenomegaly or masses. EXTREMITIES: Without cyanosis or clubbing. He has 3+ pitting edema lower extremities bilaterally as well as dependent edema to the upper extremities. Distal pulses are equal and bilateral. IMPRESSION AND PLAN: The patient was seen by Dr. Kolby Anderson. He noted the patient is very ill, kn own gastric cancer, status post gastrectomy progressively worse several days, noted to be severely hy potensive and tachycardic. Labs revealed hyponatremia, elevated creatinine of 1.4. Lactic acidosis of 13 with albumin of 1.4, hence, renal consult. We will continue the patient on vancomycin and cefe pime on pressor therapy, transferred him to the intensive care unit. He is significantly neutropenic . He has 4 blood cultures pending. Urine culture pending. We will follow the patient with the hosp italist. Dictated By: MAR PAK MD, JD/SHRUTHI Conf#: [id number] DID#: [id number]
[2018-03-28] MEDS: FAMOTIDINE 20 MG INJ IV SCH (21:43)
[2018-03-28] MEDS ORDERED: SOD CHLORIDE 0.9% 250 ML IV ONE (22:00)
[2018-03-28] MEDS: CEFEPIME 2GM/50 ML (PMX) 50 ML IVPB SCH (23:25)
[2018-03-29] VITALS (97 sets, daily range): BP systolic 30–123; BP diastolic 15–93; PULSE 111–139; RESP 14–39
[2018-03-29] MEDS: ALBUMIN HUMAN 25% 100 ML IV SCH ×2 (00:09→06:13)
[2018-03-29] MEDS: PHENYLephrine 80 MG in DEXTROSE 5% 242 ML IV SCH ×5 (02:30→21:51)
[2018-03-29] MEDS ORDERED: SOD CHLORIDE 0.9% 250 ML IV ONE (04:30)
[2018-03-29] MEDS: SOD CHLORIDE 0.9% 1,000 ML IV SCH (05:25)
--- NOTE | 2018-03-29 07:31 | NUR ---
Patient alert/oriented x4, sinus tachy as high as 120's, patient exhibits upper and lower extremity pitting edema. Patient on 3L of 02 sating >92%. Jaeger catheter in place with approx 100 cc urine output PM shift, MD aware. Patient currently on NPO status, with upper and lower dentures. Patient currently on Levophed @ 30, Otis @ 260. Patient had two bowel movements of diarrhea, culture sent for c.diff. Patient also received 2U of FFP during PM shift, pt tolerated well, afebrile. Dr. Duncan aware of two sets of blood cultures positive for gram - rods. 0500 lactic acid >12, hemoglobin 6.6 MD notified, but received no answer. Will endorse to oncoming nurse. Endorsed to oncoming nurse to obtain medical records from [facility].
[2018-03-29] MEDS ORDERED: VANCOMYCIN 750 MG (PMX) 250 ML IVPB SCH (08:00)
[2018-03-29] MEDS ORDERED: SODIUM BICARBONATE (IV ADD) 100 MEQ in DEXTROSE 5%-0.45% NACL 1,000 ML IV SCH (08:00)
[2018-03-29] MEDS ORDERED: DEXTROSE 50% 50 ML SYRINGE ONE (08:18)
[2018-03-29] MEDS: FAMOTIDINE 20 MG INJ IV SCH (08:47)
[2018-03-29] MEDS: CEFEPIME 2GM/50 ML (PMX) 50 ML IVPB SCH (08:47)
[2018-03-29] MEDS: DEXTROSE 50% 50 ML SYRINGE IV PRN ×2 (08:47→13:02)
[2018-03-29] MEDS: NORepinephrine 32 MG in DEXTROSE 5% 218 ML IV SCH ×2 (09:09→23:27)
[2018-03-29] MEDS ORDERED: FENTAnyl 50 MCG/ML VIAL ONE (09:59)
[2018-03-29] MEDS ORDERED: FENTAnyl 50 MCG/ML VIAL IV ONE (10:00)
[2018-03-29] MEDS ORDERED: VASOPRESSIN 60 UNIT in DEXTROSE 5% 57 ML IV SCH (10:00)
--- NOTE | 2018-03-29 10:17 | CONS ---
Date/Time of Note Date/Time of Note DATE: 03/29/18 TIME: 10:05 Assessment/Plan Assessment/Plan Assessment/Plan IMP: 1. Refractory Septic Shock--likely due to gram negative mita sepsis, possibly inta-abdominal source vs. lung and less likely urinary. Additionally, there may be a hypovolemic component and he is likely loosing blood as a result of his coagulopathy 2. Severe Lactic Acidosis 2/2 #1 3. ARF--likely pre-renal v. ATN 4. Hypoglycemia--due to profound end-organ failure 5. Anemia--concern for active hemorrhage 6. Gastric Cancer--status unknown RECS: 1. Aggressive volume resuscitation with IVF's, D5W and 3 amps NaHCO3; FFP; and PRBC 2. Needs urgent intubation 3. Follow Lactate clearance 4. Follow urine output and creatinine; may need CRRT 5. Broaden Abx to meropenem for ESBL coverage 6. Follow DIC labs 7. Follow H/H,coags, and transfuse blood products as needed 8. PPI IV 9. Obtain medical records from [facility] 10. I had a discussion with family regarding his prognosis in view of multiorgan system failure. They are aware, but would like everything done at this time. Result Diagram: 03/29/18 0822 03/29/18 0822 Results 24hrs Laboratory Tests Test 03/28/18 12:46 03/28/18 12:55 03/28/18 15:08 03/28/18 16:11 POC Venous Lactate 9.8 *H White Blood Count 1.7 L Red Blood Count 2.65 L Hemoglobin 8.2 L Hematocrit 24.9 L Mean Corpuscular 94.0 Volume Mean Corpuscular 30.9 Hemoglobin Mean Corpuscular 32.9 Hemoglobin Concent Red Cell 19.3 H Distribution Width Platelet Count 206 165 Mean Platelet 9.8 Volume Immature 0.600 H Granulocytes % Neutrophils % Segmented 25 L Neutrophils % (Manual) Band Neutrophils % 48 H (Manual) Lymphocytes % Lymphocytes % 4 L (Manual) Reactive 2 H Lymphocytes % (Manual) Monocytes % Monocytes % 3 (Manual) Eosinophils % Basophils % Metamyelocytes % 12 H (manual) Myelocytes % 7 H (Manual) Nucleated Red 1 H Blood Cells % Immature 0.010 Granulocytes # Neutrophils # Neutrophils # 0.4 L (Manual) Band Neutrophils # 0.8 H Lymphocytes 0.0 L (Manual) Lymphocytes # Reactive 0.0 Lymphocytes # Monocytes # Monocytes # 0.0 L (Manual) Eosinophils # Basophils # Metamyelocytes # 0.2 H Myelocytes # 0.1 H Nucleated Red Blood Cells # White Cell @See below Morphology Comment Platelet Estimate NORMAL Giant Platelets 5 H Polychromasia 1+ Hypochromasia 1+ Poikilocytosis 2+ Anisocytosis 2+ Macrocytosis 2+ Target Cells 1+ Red Cell @See below Morphology Comment Prothrombin Time 28.7 H 36.4 #H Prothrombin Time 2.2 2.8 Ratio INR International 2.70 3.66 Normalized Ratio Activated 49.2 H 63.[address] Time Sodium Level 131 L Potassium Level 4.3 Chloride Level 98 Carbon Dioxide 18 L Level Anion Gap 15 H Blood Urea 9 Nitrogen Creatinine 1.46 H Est Glomerular 50 L Filtrat Rate mL/min Glucose Level 79 Lactic Acid Level 13.0 *H 11.4 *H Calcium Level 7.2 L Total Bilirubin 0.5 Direct Bilirubin 0.00 Indirect Bilirubin 0.5 Aspartate Amino 33 Transf (AST/SGOT) Alanine 18 Aminotransferase ( ALT/SGPT) Alkaline 83 Phosphatase Troponin I < 0.012 Total Protein 4.1 L Albumin 1.4 L Globulin 2.70 Albumin/Globulin 0.51 Ratio Lipase < 10 L Urine Color MELO Urine Clarity CLOUDY A Urine pH 5.0 Urine Specific 1.019 Edison Urine Ketones TRACE A Urine Nitrite NEGATIVE Urine Bilirubin 1+ H Urine Urobilinogen 2+ H Urine Leukocyte NEGATIVE Esterase Urine Microscopic 5 RBC Urine Microscopic 5 WBC Urine Bacteria FEW A Urine Hyaline FEW A Casts Urine Mucus FEW A Urine Hemoglobin NEGATIVE Urine Random 461.11 H Creatinine Urine Random < 13 L Sodium Urine Glucose NEGATIVE Urine Total 34.0 H Protein Thrombin Time 20.6 H Fibrinogen 83.0 L Plasma Fibrin >10 and <40 H Degradation Produc ts D-Dimer 2498.97 H D-Dimer Comment Hemoglobin A1c 5.2 Free Thyroxine 1.32 Test 03/28/18 19:02 03/28/18 21:45 03/28/18 23:22 03/29/18 04:28 Lactic Acid Level 12.0 *H 12.3 *H 13.4 *H White Blood Count 2.3 #L Red Blood Count 2.11 #L Hemoglobin 6.6 *L Hematocrit 20.4 L Mean Corpuscular 96.7 Volume Mean Corpuscular 31.3 Hemoglobin Mean Corpuscular 32.4 Hemoglobin Concent Red Cell 20.3 H Distribution Width Platelet Count 117 #L Mean Platelet 10.5 H Volume Immature 0.400 Granulocytes % Neutrophils % Segmented 25 L Neutrophils % (Manual) Band Neutrophils % 53 H (Manual) Lymphocytes % Lymphocytes % 3 L (Manual) Monocytes % Monocytes % 1 (Manual) Eosinophils % Eosinophils % 2 (Manual) Basophils % Basophils % 1 (Manual) Metamyelocytes % 6 H (manual) Myelocytes % 9 H (Manual) Nucleated Red 0.0 Blood Cells % Immature 0.010 Granulocytes # Neutrophils # Neutrophils # 0.6 L (Manual) Band Neutrophils # 1.2 H Lymphocytes 0.0 L (Manual) Lymphocytes # Monocytes # Monocytes # 0.0 L (Manual) Eosinophils # Basophils # Basophils # 0.0 (Manual) Metamyelocytes # 0.1 H Myelocytes # 0.2 H Nucleated Red Blood Cells # Platelet Estimate DECREASED Giant Platelets 2 H Polychromasia 3+ Hypochromasia 1+ Poikilocytosis 3+ Anisocytosis 3+ Macrocytosis 3+ Target Cells 1+ Prothrombin Time 26.6 #H Prothrombin Time 2.1 Ratio INR International 2.45 Normalized Ratio Activated 75.0 *H Partial Thrombopla st Time Sodium Level 137 Potassium Level 3.8 Chloride Level 109 # Carbon Dioxide 13 L Level Anion Gap 15 H Blood Urea 8 Nitrogen Creatinine 2.00 H Est Glomerular 35 L Filtrat Rate mL/min Glucose Level 29 #*L Hemoglobin A1c 5.1 Calcium Level 6.7 L Total Bilirubin 1.1 Direct Bilirubin 0.60 #H Indirect Bilirubin 0.5 Aspartate Amino 94 #H Transf (AST/SGOT) Alanine 40 Aminotransferase ( ALT/SGPT) Alkaline 52 Phosphatase Total Protein 4.2 L Albumin 2.0 L Globulin 2.20 Albumin/Globulin 0.90 Ratio Triglycerides 80 Level Cholesterol Level < 50 L LDL Cholesterol, Calculated HDL Cholesterol 10 L Cholesterol/HDL Ratio Thyroid 2.290 Stimulating Hormone (TSH) Test 03/29/18 04:30 03/29/18 08:16 03/29/18 08:22 03/29/18 08:42 Lactic Acid Level 13.3 *H 13.1 *H Phosphorus Level 5.7 H Magnesium Level 1.6 L Bedside Glucose 27 *L 123 White Blood Count 2.9 #L Red Blood Count 2.02 L Hemoglobin 6.2 *L Hematocrit 20.1 L Mean Corpuscular 99.5 Volume Mean Corpuscular 30.7 Hemoglobin Mean Corpuscular 30.8 L Hemoglobin Concent Red Cell 20.4 H Distribution Width Platelet Count 95 L Mean Platelet 10.6 H Volume Immature 9.200 H Granulocytes % Neutrophils % Segmented 12 L Neutrophils % (Manual) Band Neutrophils % 45 H (Manual) Lymphocytes % Lymphocytes % 12 L (Manual) Monocytes % Monocytes % 14 H (Manual) Eosinophils % Eosinophils % 1 (Manual) Basophils % Metamyelocytes % 7 H (manual) Myelocytes % 9 H (Manual) Nucleated Red 2 H Blood Cells % Immature 0.270 H Granulocytes # Neutrophils # Neutrophils # 0.4 L (Manual) Band Neutrophils # 1.3 H Lymphocytes 0.3 L (Manual) Lymphocytes # Monocytes # Monocytes # 0.4 (Manual) Eosinophils # Basophils # Metamyelocytes # 0.2 H Myelocytes # 0.2 H Nucleated Red Blood Cells # Platelet Estimate DECREASED Giant Platelets 2 H Polychromasia 1+ Hypochromasia 1+ Poikilocytosis 3+ Anisocytosis 3+ Macrocytosis 3+ Target Cells 1+ Ovalocytes 1+ Glucose Level 32 *L Consultation Date/Type/Reason Admit Date/Time Date of Consultation: Mar 29, 2018 Type of Consult Pulm/CCM Reason for Consultation Refractory Septic Shock Hx of Present Illness Briefly, this is a 52-year-old man with a history of gastric cancer s/p g astrectomy followed by chemotherapy and possible XRT 2-3 days prior at [facility], otherwise unclear status of his cancer, who appears to have presented a few days prior to [facility] with nausea and weakness, now presents to [facility] with fevers and leukocytosis, found to be in septic shock. I heard about this patient as I was rounding in the ICU from one of the nurses and proceeded to evaluate him. He is anuric with severe lactic acidosis, DIC, refractory septic shock on 2 vasopressors. Subjective hx not possible: pt non-verbal Past Medical History Medical History: cancer, other (gastric cancer s/p resection 2014) Medications Current Medications IV Flush (NS 3 ml) 3 ml PER PROTOCOL IV ; Start 03/28/18 at 16:00 Ondansetron HCl (Zofran Inj) 4 mg Q6H PRN IV NAUSEA AND/OR VOMITING Last administered on 03/29/18at 09:29; Admin Dose 4 MG; Start 03/28/18 at 16:00 Acetaminophen (Tylenol Tab) 650 mg Q6H PRN PO PAIN LEVEL 1-3 OR FEVER; Start 03/28/18 at 16:00 Acetaminophen/ Hydrocodone Bitart ([place] (5/325)) 1 tab Q6H PRN PO MODERATE PAIN LEVEL 4-6; Start 03/28/18 at 16:00 Morphine Sulfate (morphine) 2 mg Q4H PRN IV SEVERE PAIN LEVEL 7-10 Last administered on 03/28/18at 22:08; Admin Dose 2 MG; Start 03/28/18 at 16:00 Docusate Sodium (Colace) 100 mg Q12H PRN PO CONSTIPATION; Start 03/28/18 at 16:00 Magnesium Hydroxide (Milk Of Mag) 30 ml DAILY PRN PO CONSTIPATION; Start 03/28/18 at 16:00 Famotidine (Pepcid Iv) 20 mg DAILY IV Last administered on 03/29/18at 08:47; Admin Dose 20 MG; Start 03/28/18 at 21:00 Lorazepam (Ativan) 0.5 mg Q6H PRN IV ANXIETY; Start 03/28/18 at 16:00 Albuterol/ Ipratropium (Duoneb) 3 ml Q4H RESP THERAPY PRN HHN SHORTNESS OF BREATH Last administered on 03/29/18at 09:18; Admin Dose 3 ML; Start 03/28/18 at 16:00 Vancomycin HCl (Vanco Iv Per Pharmacy) VANCOMYCIN PER PHARMACY NOTE XX ; Start 03/28/18 at 16:00 Hydralazine HCl (Apresoline) 10 mg Q6H PRN IV ELEVATED BLOOD PRESSURE; Start 03/28/18 at 16:00 Nitroglycerin (Nitroglycerin (Sl Tab) 0.4 Mg) 1 tab Q5M PRN SL ANGINA; Start 03/28/18 at 16:00 Norepinephrine 32 mg/Dextrose 250 ml @ 0.47 mls/hr TITRATE IV Last administered on 03/29/18at 09:09; Admin Dose 13.59 MLS/HR; Start 03/28/18 at 17:00 Phenylephrine HCl 80 mg/Dextrose 250 ml @ 18.75 mls/ hr TITRATE IV Last administered on 03/29/18at 09:02; Admin Dose 48.75 MLS/HR; Start 03/28/18 at 18:00 Vancomycin HCl 250 ml @ 125 mls/hr Q24H IVPB ; Start 03/29/18 at 22:00 Dextrose (D50w Syringe) 50 ml IV PRN IV HYPOGLYCEMIA (BS<70) Last administered on 03/29/18at 08:47; Admin Dose 50 ML; Start 03/29/18 at 09:00 Vasopressin 60 unit/Dextrose 60 ml @ 0 mls/hr Q12H IV ; Start 03/29/18 at 10:00 Sodium Bicarbonate 150 meq/Dextrose 1,150 ml @ 150 mls/hr Q7H40M IV ; Start 03/29/18 at 11:00 Meropenem/Sodium Chloride 50 ml @ 100 mls/hr Q12 IVPB ; Start 03/29/18 at 10:00 Allergies: Coded Allergies: No Known Allergy (Unverified , 03/28/18) Past Surgical History Past Surgical Hx: other (gastrectomy) Family History Significant Family History: no pertinent family hx Social History Alcohol Use: none Smoking Status: Never smoker Drug Use: none Exam/Review of Systems Vital Signs Vitals Vital Signs Date Temp Pulse Resp B/P (MAP) Pulse Ox O2 O2 Flow FiO2 Time Delivery Rate 03/29/18 125 20 97 Nasal 5.0 09:19 Cannula 03/29/18 94/83 (87) 07:45 03/29/18 97.8 04:00 Intake and Output 03/28/18 03/28/18 03/29/18 1515:00 23:00 07:00 IntakeIntake Total 4050 ml 639.573 ml 1665.396 ml BalanceBalance 4050 ml 639.573 ml 1665.396 ml Exam Constitutional: distress Head: normocephalic, atraumatic Eyes: nl conjunctiva, EOMI, nl lids ENMT: nl external ears & nose, nl lips & teeth, nl nasal mucosa & septum, mucosa pink and moist Neck: supple, non-tender, jvd Respiratory: diminished breath sounds Cardiovascular: irregular rhythm, jugular venous distention (JVD) Gastrointestinal: soft, non-tender, distended, hepatomegaly, surgical scars Musculoskeletal: nl extremities to inspection Extremities: normal pulses, edema Neurological: [employer] II-XII intact Medications Medications Current Medications IV Flush (NS 3 ml) 3 ml PER PROTOCOL IV ; Start 03/28/18 at 16:00 Ondansetron HCl (Zofran Inj) 4 mg Q6H PRN IV NAUSEA AND/OR VOMITING Last administered on 03/29/18at 09:29; Admin Dose 4 MG; Start 03/28/18 at 16:00 Acetaminophen (Tylenol Tab) 650 mg Q6H PRN PO PAIN LEVEL 1-3 OR FEVER; Start 03/28/18 at 16:00 Acetaminophen/ Hydrocodone Bitart ([place] (5/325)) 1 tab Q6H PRN PO MODERATE PAIN LEVEL 4-6; Start 03/28/18 at 16:00 Morphine Sulfate (morphine) 2 mg Q4H PRN IV SEVERE PAIN LEVEL 7-10 Last administered on 03/28/18at 22:08; Admin Dose 2 MG; Start 03/28/18 at 16:00 Docusate Sodium (Colace) 100 mg Q12H PRN PO CONSTIPATION; Start 03/28/18 at 16:00 Magnesium Hydroxide (Milk Of Mag) 30 ml DAILY PRN PO CONSTIPATION; Start 03/28/18 at 16:00 Famotidine (Pepcid Iv) 20 mg DAILY IV Last administered on 03/29/18at 08:47; Admin Dose 20 MG; Start 03/28/18 at 21:00 Lorazepam (Ativan) 0.5 mg Q6H PRN IV ANXIETY; Start 03/28/18 at 16:00 Albuterol/ Ipratropium (Duoneb) 3 ml Q4H RESP THERAPY PRN HHN SHORTNESS OF BREATH Last administered on 03/29/18at 09:18; Admin Dose 3 ML; Start 03/28/18 at 16:00 Vancomycin HCl (Vanco Iv Per Pharmacy) VANCOMYCIN PER PHARMACY NOTE XX ; Start 03/28/18 at 16:00 Hydralazine HCl (Apresoline) 10 mg Q6H PRN IV ELEVATED BLOOD PRESSURE; Start 03/28/18 at 16:00 Nitroglycerin (Nitroglycerin (Sl Tab) 0.4 Mg) 1 tab Q5M PRN SL ANGINA; Start 03/28/18 at 16:00 Norepinephrine 32 mg/Dextrose 250 ml @ 0.47 mls/hr TITRATE IV Last administ ered on 03/29/18at 09:09; Admin Dose 13.59 MLS/HR; Start 03/28/18 at 17:00 Phenylephrine HCl 80 mg/Dextrose 250 ml @ 18.75 mls/ hr TITRATE IV Last administered on 03/29/18at 09:02; Admin Dose 48.75 MLS/HR; Start 03/28/18 at 18:00 Vancomycin HCl 250 ml @ 125 mls/hr Q24H IVPB ; Start 03/29/18 at 22:00 Dextrose (D50w Syringe) 50 ml IV PRN IV HYPOGLYCEMIA (BS<70) Last administered on 03/29/18at 08:47; Admin Dose 50 ML; Start 03/29/18 at 09:00 Vasopressin 60 unit/Dextrose 60 ml @ 0 mls/hr Q12H IV ; Start 03/29/18 at 10:00 Sodium Bicarbonate 150 meq/Dextrose 1,150 ml @ 150 mls/hr Q7H40M IV ; Start 03/29/18 at 11:00 Meropenem/Sodium Chloride 50 ml @ 100 mls/hr Q12 IVPB ; Start 03/29/18 at 10:00 FREDRICK LAUREN MD Mar 29, 2018 10:17
--- NOTE | 2018-03-29 10:44 | EN ---
Date/Time of Note Date/Time of Note DATE: 03/29/18 TIME: 10:40 Event Note Medicine Medicine Event Note Endotracheal Intubation Indication: Refractory Septic Shock and multiorgan failure with increased work of breathing Consent: Obtained from family : Soraya Meds: Fentayl 50 mcg IV: etomidate 20 mg IV; succinylcholine 60 mg IVP Technique: The patients blood pressure was stabilized prior to the procedure with the addition of a 3rd pressors. Upon induction of anesthesia, patient received bad-valve ventilation. Using a [employer] video scope with 4.0 blade, a 7.5 ET tube was advanced under a grade I view. The stylet was removed and cuff was inflated. Confirmation by ETCO2+ and B/L breath sounds. SpO2 remained above 95% at all times Complications: None FREDRICK LAUREN MD Mar 29, 2018 10:44
[2018-03-29] MEDS ORDERED: FENTAnyl (DRIP) 1000 mcg/100mL 100 ML IV SCH (11:00)
--- NOTE | 2018-03-29 11:09 | PN ---
Date/Time of Note Date/Time of Note DATE: 03/29/18 TIME: 10:57 Assessment/Plan VTE Prophylaxis Risk score (from [facility] [place])>0 risk: 8 SCD applied (from [facility] [place]): Yes SCD contraindicated: other Pharmacological prophylaxis: NA/contraindicated Pharm contraindication: blood coag disorder Lines/Catheters IV Catheter Type (from [facility]): Central Line Central line still needed: Yes Urinary Cath still in place: Yes Reason Cath still needed: urinary retention Assessment/Plan Hospital Course S: Patient now intubated this morning, now on 3 pressor support, still with significant lactic acidosis, received FFP last night and now getting PRBC transfusion for significantly low hemoglobin. Seen by pulmonary team this morning. Blood cultures preliminary show gram negative rods 2 out of 2 bottles. O: VS - see below PE: GENERAL: Lying in bed, lethargic, intubated HEENT: Dry mucous membranes, pale conjunctiva, no pharyngeal erythema, otherwise PERRL no focal deficits NECK: Supple NEURO: No focal deficits CARDIAC: Tachycardic, no murmurs rubs or gallops LUNGS: Clear bilaterally no wheezing crackles or stridor ABDOMEN: Soft nontender, no guarding, no rigidity, no rebound, no psoas sign no obturator sign. SKIN: Right flank and hip shows ecchymosis findings, also petechial rash noted on the anterior thighs bilaterally EXTREMITIES: No clubbing cyanosis, 3+ pitting edema in the lower extremities bilaterally to the thighs as well as dependent edema to the upper extremities CT abdomen pelvis: IMPRESSION: *Exam is very limited without the use of intravenous contrast.* Highly recommend repeat examination with IV contrast when clinically feasible. If patient cannot receive contrast, then recommend obtaining an MRI of the abdomen/pelvis. Evidence of volume overload with interstitial edema, pleural effusions and large volume ascites. There is small bowel dilation with wall thickening, likely ileus and reactive changes from the ascites. Postsurgical changes involving the distal esophagus and in the left upper quadrant. Age-indeterminate compression deformity of the L1 vertebral body. Diffuse hepatic steatosis. Assessment and plan: 52-year-old male presenting with severe weakness, vomiting , with septic shock, bacteremia and pneumonia, severe lactic acidosis. #Weakness vomiting + septic shock-patient also with signs of DIC, patient has gram-negative mita bacteremia 2 out of 2 bottles, signs of left lower lobe lobe pneumonia as well. Pt's attention and lactic acidosis likely secondary to severe hypoperfusion/third spacing (ascites) + intravascular volume depletion (vomiting). Received FFP last night and getting more now including PRBC transfusion. -Now on meropenem and vancomycin, hydrocortisone, pressor support x3, D5 IV fluids with bicarb, continue these -Trend lactic acid (still significantly elevated), continue aggressive IV fluid hydration -We will follow final culture results particularly on the blood cultures and sputum cultures -Follow recommendations from pulmonary, renal, ID teams. #History of gastric cancer: Status post gastrectomy at least 2 years ago. Per family he has not received any chemotherapy or radiation over the last 2 years apparently. -CT abdomen pelvis findings, for now antibiotics hopefully will cover for any possible SBP present if patient stabilizes, will consider for paracentesis and send fluid for study analysis -Again, continue broad-spectrum antibiotics -Follow-up recommendations from hematology oncology consult, for the cancer and also for the DIC # DIC -likely secondary to patient's overall worsening septic shock. Received FFP x2 yesterday -Follow-up x-ray of the right hip given ecchymosis seen there, order for more FFP today as mentioned above, ordered for PRBC transfuse -Follow-up post transfusion CBC, checking H&H every 6 hours, follow hematology oncology recommended, monitor coags #Renal insufficiency: Again secondary to septic shock and intravascular volume depletion. Appreciate renal consult, patient received albumin yesterday, creatinine more elevated today. Appears to have minimal urine output -As above, continue pressors, fluids, follow-up renal rec's, monitor urine output, f/u BMP in AM Dispo: Overall very poor prognosis patient is on 3 pressor support, significant DIC, worsening septic shock. For now family wants everything done, full code for now Critical care time spent on patient care today equals 55 minutes. Result Diagram: 03/29/18 0822 03/29/18 0822 Results 24hrs Laboratory Tests Test 03/28/18 12:46 03/28/18 12:55 03/28/18 15:08 03/28/18 16:11 POC Venous Lactate 9.8 *H White Blood Count 1.7 L Red Blood Count 2.65 L Hemoglobin 8.2 L Hematocrit 24.9 L Mean Corpuscular 94.0 Volume Mean Corpuscular 30.9 Hemoglobin Mean Corpuscular 32.9 Hemoglobin Concent Red Cell 19.3 H Distribution Width Platelet Count 206 165 Mean Platelet 9.8 Volume Immature 0.600 H Granulocytes % Neutrophils % Segmented 25 L Neutrophils % (Manual) Band Neutrophils % 48 H (Manual) Lymphocytes % Lymphocytes % 4 L (Manual) Reactive 2 H Lymphocytes % (Manual) Monocytes % Monocytes % 3 (Manual) Eosinophils % Basophils % Metamyelocytes % 12 H (manual) Myelocytes % 7 H (Manual) Nucleated Red 1 H Blood Cells % Immature 0.010 Granulocytes # Neutrophils # Neutrophils # 0.4 L (Manual) Band Neutrophils # 0.8 H Lymphocytes 0.0 L (Manual) Lymphocytes # Reactive 0.0 Lymphocytes # Monocytes # Monocytes # 0.0 L (Manual) Eosinophils # Basophils # Metamyelocytes # 0.2 H Myelocytes # 0.1 H Nucleated Red Blood Cells # White Cell @See below Morphology Comment Platelet Estimate NORMAL Giant Platelets 5 H Polychromasia 1+ Hypochromasia 1+ Poikilocytosis 2+ Anisocytosis 2+ Macrocytosis 2+ Target Cells 1+ Red Cell @See below Morphology Comment Prothrombin Time 28.7 H 36.4 #H Prothrombin Time 2.2 2.8 Ratio INR International 2.70 3.66 Normalized Ratio Activated 49.2 H 63.[address] Time Sodium Level 131 L Potassium Level 4.3 Chloride Level 98 Carbon Dioxide 18 L Level Anion Gap 15 H Blood Urea 9 Nitrogen Creatinine 1.46 H Est Glomerular 50 L Filtrat Rate mL/min Glucose Level 79 Lactic Acid Level 13.0 *H 11.4 *H Calcium Level 7.2 L Total Bilirubin 0.5 Direct Bilirubin 0.00 Indirect Bilirubin 0.5 Aspartate Amino 33 Transf (AST/SGOT) Alanine 18 Aminotransferase ( ALT/SGPT) Alkaline 83 Phosphatase Troponin I < 0.012 Total Protein 4.1 L Albumin 1.4 L Globulin 2.70 Albumin/Globulin 0.51 Ratio Lipase < 10 L Urine Color MELO Urine Clarity CLOUDY A Urine pH 5.0 Urine Specific 1.019 [place] Urine Ketones TRACE A Urine Nitrite NEGATIVE Urine Bilirubin 1+ H Urine Urobilinogen 2+ H Urine Leukocyte NEGATIVE Esterase Urine Microscopic 5 RBC Urine Microscopic 5 WBC Urine Bacteria FEW A Urine Hyaline FEW A Casts Urine Mucus FEW A Urine Hemoglobin NEGATIVE Urine Random 461.11 H Creatinine Urine Random < 13 L Sodium Urine Glucose NEGATIVE Urine Total 34.0 H Protein Thrombin Time 20.6 H Fibrinogen 83.0 L Plasma Fibrin >10 and <40 H Degradation Produc ts D-Dimer 2498.97 H D-Dimer Comment Hemoglobin A1c 5.2 Free Thyroxine 1.32 Test 03/28/18 19:02 03/28/18 21:45 03/28/18 23:22 03/29/18 04:28 Lactic Acid Level 12.0 *H 12.3 *H 13.4 *H White Blood Count 2.3 #L Red Blood Count 2.11 #L Hemoglobin 6.6 *L Hematocrit 20.4 L Mean Corpuscular 96.7 Volume Mean Corpuscular 31.3 Hemoglobin Mean Corpuscular 32.4 Hemoglobin Concent Red Cell 20.3 H Distribution Width Platelet Count 117 #L Mean Platelet 10.5 H Volume Immature 0.400 Granulocytes % Neutrophils % Segmented 25 L Neutrophils % (Manual) Band Neutrophils % 53 H (Manual) Lymphocytes % Lymphocytes % 3 L (Manual) Monocytes % Monocytes % 1 (Manual) Eosinophils % Eosinophils % 2 (Manual) Basophils % Basophils % 1 (Manual) Metamyelocytes % 6 H (manual) Myelocytes % 9 H (Manual) Nucleated Red 0.0 Blood Cells % Immature 0.010 Granulocytes # Neutrophils # Neutrophils # 0.6 L (Manual) Band Neutrophils # 1.2 H Lymphocytes 0.0 L (Manual) Lymphocytes # Monocytes # Monocytes # 0.0 L (Manual) Eosinophils # Basophils # Basophils # 0.0 (Manual) Metamyelocytes # 0.1 H Myelocytes # 0.2 H Nucleated Red Blood Cells # Platelet Estimate DECREASED Giant Platelets 2 H Polychromasia 3+ Hypochromasia 1+ Poikilocytosis 3+ Anisocytosis 3+ Macrocytosis 3+ Target Cells 1+ Prothrombin Time 26.6 #H Prothrombin Time 2.1 Ratio INR International 2.45 Normalized Ratio Activated 75.0 *H Partial Thrombopla st Time Sodium Level 137 Potassium Level 3.8 Chloride Level 109 # Carbon Dioxide 13 L Level Anion Gap 15 H Blood Urea 8 Nitrogen Creatinine 2.00 H Est Glomerular 35 L Filtrat Rate mL/min Glucose Level 29 #*L Hemoglobin A1c 5.1 Calcium Level 6.7 L Total Bilirubin 1.1 Direct Bilirubin 0.60 #H Indirect Bilirubin 0.5 Aspartate Amino 94 #H Transf (AST/SGOT) Alanine 40 Aminotransferase ( ALT/SGPT) Alkaline 52 Phosphatase Total Protein 4.2 L Albumin 2.0 L Globulin 2.20 Albumin/Globulin 0.90 Ratio Triglycerides 80 Level Cholesterol Level < 50 L LDL Cholesterol, Calculated HDL Cholesterol 10 L Cholesterol/HDL Ratio Thyroid 2.290 Stimulating Hormone (TSH) Test 03/29/18 04:30 03/29/18 08:16 03/29/18 08:22 03/29/18 08:42 Lactic Acid Level 13.3 *H 13.1 *H Phosphorus Level 5.7 H Magnesium Level 1.6 L Bedside Glucose 27 *L 123 White Blood Count 2.9 #L Red Blood Count 2.02 L Hemoglobin 6.2 *L Hematocrit 20.1 L Mean Corpuscular 99.5 Volume Mean Corpuscular 30.7 Hemoglobin Mean Corpuscular 30.8 L Hemoglobin Concent Red Cell 20.4 H Distribution Width Platelet Count 95 L Mean Platelet 10.6 H Volume Immature 9.200 H Granulocytes % Neutrophils % Segmented 12 L Neutrophils % (Manual) Band Neutrophils % 45 H (Manual) Lymphocytes % Lymphocytes % 12 L (Manual) Monocytes % Monocytes % 14 H (Manual) Eosinophils % Eosinophils % 1 (Manual) Basophils % Metamyelocytes % 7 H (manual) Myelocytes % 9 H (Manual) Nucleated Red 2 H Blood Cells % Immature 0.270 H Granulocytes # Neutrophils # Neutrophils # 0.4 L (Manual) Band Neutrophils # 1.3 H Lymphocytes 0.3 L (Manual) Lymphocytes # Monocytes # Monocytes # 0.4 (Manual) Eosinophils # Basophils # Metamyelocytes # 0.2 H Myelocytes # 0.2 H Nucleated Red Blood Cells # Platelet Estimate DECREASED Giant Platelets 2 H Polychromasia 1+ Hypochromasia 1+ Poikilocytosis 3+ Anisocytosis 3+ Macrocytosis 3+ Target Cells 1+ Ovalocytes 1+ Glucose Level 32 *L Exam/Review of Systems Vital Signs Vitals Vital Signs Date Temp Pulse Resp B/P (MAP) Pulse Ox O2 O2 Flow FiO2 Time Delivery Rate 03/29/18 125 20 97 Nasal 5.0 09:19 Cannula 03/29/18 94/83 (87) 07:45 03/29/18 97.8 04:00 Intake and Output 03/28/18 03/28/18 03/29/18 1515:00 23:00 07:00 IntakeIntake Total 4050 ml 639.573 ml 1665.396 ml BalanceBalance 4050 ml 639.573 ml 1665.396 ml Medications Medications Current Medications IV Flush (NS 3 ml) 3 ml PER PROTOCOL IV ; Start 03/28/18 at 16:00 Ondansetron HCl (Zofran Inj) 4 mg Q6H PRN IV NAUSEA AND/OR VOMITING Last administered on 03/29/18at 09:29; Admin Dose 4 MG; Start 03/28/18 at 16:00 Acetaminophen (Tylenol Tab) 650 mg Q6H PRN PO PAIN LEVEL 1-3 OR FEVER; Start 03/28/18 at 16:00 Acetaminophen/ Hydrocodone Bitart ([place] (5/325)) 1 tab Q6H PRN PO MODERATE PAIN LEVEL 4-6; Start 03/28/18 at 16:00 Morphine Sulfate (morphine) 2 mg Q4H PRN IV SEVERE PAIN LEVEL 7-10 Last administered on 03/28/18at 22:08; Admin Dose 2 MG; Start 03/28/18 at 16:00 Docusate Sodium (Colace) 100 mg Q12H PRN PO CONSTIPATION; Start 03/28/18 at 16:00 Magnesium Hydroxide (Milk Of Mag) 30 ml DAILY PRN PO CONSTIPATION; Start 03/28/18 at 16:00 Famotidine (Pepcid Iv) 20 mg DAILY IV Last administered on 03/29/18at 08:47; Admin Dose 20 MG; Start 03/28/18 at 21:00 Lorazepam (Ativan) 0.5 mg Q6H PRN IV ANXIETY; Start 03/28/18 at 16:00 Albuterol/ Ipratropium (Duoneb) 3 ml Q4H RESP THERAPY PRN HHN SHORTNESS OF BREATH Last administered on 03/29/18at 09:18; Admin Dose 3 ML; Start 03/28/18 at 16:00 Vancomycin HCl (Vanco Iv Per Pharmacy) VANCOMYCIN PER PHARMACY NOTE XX ; Start 03/28/18 at 16:00 Hydralazine HCl (Apresoline) 10 mg Q6H PRN IV ELEVATED BLOOD PRESSURE; Start 03/28/18 at 16:00 Nitroglycerin (Nitroglycerin (Sl Tab) 0.4 Mg) 1 tab Q5M PRN SL ANGINA; Start 03/28/18 at 16:00 Norepinephrine 32 mg/Dextrose 250 ml @ 0.47 mls/hr TITRATE IV Last administered on 03/29/18at 09:09; Admin Dose 13.59 MLS/HR; Start 03/28/18 at 17:00 Phenylephrine HCl 80 mg/Dextrose 250 ml @ 18.75 mls/ hr TITRATE IV Last administered on 03/29/18at 09:02; Admin Dose 48.75 MLS/HR; Start 03/28/18 at 18:00 Vancomycin HCl 250 ml @ 125 mls/hr Q24H IVPB ; Start 03/29/18 at 22:00 Dextrose (D50w Syringe) 50 ml IV PRN IV HYPOGLYCEMIA (BS<70) Last administered on 03/29/18at 08:47; Admin Dose 50 ML; Start 03/29/18 at 09:00 Vasopressin 60 unit/Dextrose 60 ml @ 0 mls/hr Q12H IV ; Start 03/29/18 at 10:00 Sodium Bicarbonate 150 meq/Dextrose 1,150 ml @ 150 mls/hr Q7H40M IV ; Start 03/29/18 at 11:00 Meropenem/Sodium Chloride 50 ml @ 100 mls/hr Q12 IVPB ; Start 03/29/18 at 10:00 Hydrocortisone (Solu-Cortef) 100 mg Q8 IV ; Start 03/29/18 at 14:00 Thiamine HCl (Vitamin B1) 200 mg BID NGT ; Start 03/29/18 at 10:30 Fentanyl 100 ml @ 5 mls/hr TITRATE IV ; Start 03/29/18 at 11:00; Status UNV Midazolam HCl 50 ml @ 1 mls/hr TITRATE IV ; Start 03/29/18 at 11:00 AMBERLY MARQUEZ Mar 29, 2018 11:09
--- NOTE | 2018-03-29 11:13 | CONS ---
Date/Time of Note Date/Time of Note DATE: 03/29/18 TIME: 10:42 Assessment/Plan Assessment/Plan Hospital Course ID PROGRESS NOTE CURRENT ABX: DAY #2 => Vanco IV + Merrem s/p Cefepime 03/29/1882103/29/18821 24H INTERVAL SUMMARY * Acute hypoxic respiratory failure -- orally intubated this am -- septic shock on 3-pressors with hypovolemia * (+)hemorrhagic right thigh // BLEXT petechiae -- (+)DIC w/profound anemia concerning for GIB w/coagulopathy PLT @32 * Patient reported (+)Diarrhea this am * 03/28/18 CXR ~NOON: IMPRESSION: 1. Air space opacification is seen at the left lung base along with a small to moderate left pleural fluid accumulation.2. A somewhat linear density projects to the lateral right mid to lower lung zone possibly representing calcific pleural plaquing.3. Mild degenerative enthesopathy of the thoracic spine. * 03/28/18 CXR MIDNIGHT on admission 03/27/18: Right subclavian catheter tip in appropriate position. No evidence pneumothorax.Similar left basilar airspace opacity representing atelectasis or pneumonia.Small left pleural effusion.Aortic atherosclerotic calcifications. Probable right pleural plaque. * 03/28/18 CT A-P: IMPRESSION:*Exam is very limited without the use of intravenous contrast.* Highly recommend repeat examination with IV contrast when clinically feasible. If patient cannot receive contrast, then recommend obtaining an MRI of the abdomen/pelvis. * Evidence of volume overload with interstitial edema, pleural effusions and large volume ascites. There is small bowel dilation with wall thickening, likely ileus and reactive changes from the ascites. * Postsurgical changes involving the distal esophagus and in the left upper quadrant. * Age-indeterminate compression deformity of the L1 vertebral body. * Diffuse hepatic steatosis. MICRO * 03/28/18 BCx (+)GNR --> Pending PHYSICAL EXAMINATION: GENERAL: Afebrile, VSS, HEENT: AT, NC, anicteric NECK: Supple, trach midline CHEST: Equal chest rise bilaterally, without dyspnea on observation HEART: Pulse RRR ABDOMEN: Soft / NT EXTREMITIES: Warm, dry SKIN: No rash, no diaphoresis ID ASSESSMENT 52 yo M (+) Generalized weakness/fatigue/syncopal episode at home prior to admission with: 1. GNR Severe Sepsis w/shock on admission w/Fevers >103.+, hypotension, lactic acid 3.4 => work up in process * 03/28/18 BCx (+)GNR --> Pending == Suspect GI source ?Obstructive biliary sepsis? * (+)Hypovolemic component -- 3rd spacing w/intravascular volume depletion * Evidence of volume overload with interstitial edema, pleural effusions and large volume ascites. 2. Gastric cancer -> s/p Gastrectomy 2017, prior gastric surgical intervention 2015 3. Leukopenia on admission w/WBC 1.7 w/ Neutropenia 0.4, and Bandemia due to sepsis + Gastric Cancer * Now w/thrombocytopenia due to sepsis + multi-organ dysfunction + cytotoxic meds/ABX 4. Acute hypoxic respiratory failure 5. Marked diffuse decrease in attenuation of the liver. Questionable common bile duct stent seen. 6. Hepatis steatosis * Former heavy ETOH - Quit ~ 7. Acute elevated AST - liver shock + ? 8. Acute renal failure -- ATN suspected 9. Hypoglycemia--due to profound end-organ failure 10. Anemia--> possible active hemorrhage (?)MRSA Nares screening pending ABX ALLERGIES: KNDA INVASIVES: PICC, FC CURRENT ABX: DAY #2 => Vanco IV + Merrem s/p Cefepime ID RECOMMENDATIONS/PLAN: * Continue current ABX * Stool Cx sent for C.Diff due to (+)diarrhea * Prognosis guarded -- difficult to obtain/maintain adequate perfusion in setting sepsis/hypovolemic shock w/DIC . Result Diagram: 03/29/1882103/29/18 0822 Results 24hrs Laboratory Tests Test 03/28/18 12:46 03/28/18 12:55 03/28/18 15:08 03/28/18 16:11 POC Venous Lactate 9.8 *H White Blood Count 1.7 L Red Blood Count 2.65 L Hemoglobin 8.2 L Hematocrit 24.9 L Mean Corpuscular 94.0 Volume Mean Corpuscular 30.9 Hemoglobin Mean Corpuscular 32.9 Hemoglobin Concent Red Cell 19.3 H Distribution Width Platelet Count 206 165 Mean Platelet 9.8 Volume Immature 0.600 H Granulocytes % Neutrophils % Segmented 25 L Neutrophils % (Manual) Band Neutrophils % 48 H (Manual) Lymphocytes % Lymphocytes % 4 L (Manual) Reactive 2 H Lymphocytes % (Manual) Monocytes % Monocytes % 3 (Manual) Eosinophils % Basophils % Metamyelocytes % 12 H (manual) Myelocytes % 7 H (Manual) Nucleated Red 1 H Blood Cells % Immature 0.010 Granulocytes # Neutrophils # Neutrophils # 0.4 L (Manual) Band Neutrophils # 0.8 H Lymphocytes 0.0 L (Manual) Lymphocytes # Reactive 0.0 Lymphocytes # Monocytes # Monocytes # 0.0 L (Manual) Eosinophils # Basophils # Metamyelocytes # 0.2 H Myelocytes # 0.1 H Nucleated Red Blood Cells # White Cell @See below Morphology Comment Platelet Estimate NORMAL Giant Platelets 5 H Polychromasia 1+ Hypochromasia 1+ Poikilocytosis 2+ Anisocytosis 2+ Macrocytosis 2+ Target Cells 1+ Red Cell @See below Morphology Comment Prothrombin Time 28.7 H 36.4 #H Prothrombin Time 2.2 2.8 Ratio INR International 2.70 3.66 Normalized Ratio Activated 49.2 H 63.[address] Time Sodium Level 131 L Potassium Level 4.3 Chloride Level 98 Carbon Dioxide 18 L Level Anion Gap 15 H Blood Urea 9 Nitrogen Creatinine 1.46 H Est Glomerular 50 L Filtrat Rate mL/min Glucose Level 79 Lactic Acid Level 13.0 *H 11.4 *H Calcium Level 7.2 L Total Bilirubin 0.5 Direct Bilirubin 0.00 Indirect Bilirubin 0.5 Aspartate Amino 33 Transf (AST/SGOT) Alanine 18 Aminotransferase ( ALT/SGPT) Alkaline 83 Phosphatase Troponin I < 0.012 Total Protein 4.1 L Albumin 1.4 L Globulin 2.70 Albumin/Globulin 0.51 Ratio Lipase < 10 L Urine Color MELO Urine Clarity CLOUDY A Urine pH 5.0 Urine Specific 1.019 [place]us Urine Ketones TRACE A Urine Nitrite NEGATIVE Urine Bilirubin 1+ H Urine Urobilinogen 2+ H Urine Leukocyte NEGATIVE Esterase Urine Microscopic 5 RBC Urine Microscopic 5 WBC Urine Bacteria FEW A Urine Hyaline FEW A Casts Urine Mucus FEW A Urine Hemoglobin NEGATIVE Urine Random 461.11 H Creatinine Urine Random < 13 L Sodium Urine Glucose NEGATIVE Urine Total 34.0 H Protein Thrombin Time 20.6 H Fibrinogen 83.0 L Plasma Fibrin >10 and <40 H Degradation Produc ts D-Dimer 2498.97 H D-Dimer Comment Hemoglobin A1c 5.2 Free Thyroxine 1.32 Test 03/28/18 19:02 03/28/18 21:45 03/28/18 23:22 03/29/18 04:28 Lactic Acid Level 12.0 *H 12.3 *H 13.4 *H White Blood Count 2.3 #L Red Blood Count 2.11 #L Hemoglobin 6.6 *L Hematocrit 20.4 L Mean Corpuscular 96.7 Volume Mean Corpuscular 31.3 Hemoglobin Mean Corpuscular 32.4 Hemoglobin Concent Red Cell 20.3 H Distribution Width Platelet Count 117 #L Mean Platelet 10.5 H Volume Immature 0.400 Granulocytes % Neutrophils % Segmented 25 L Neutrophils % (Manual) Band Neutrophils % 53 H (Manual) Lymphocytes % Lymphocytes % 3 L (Manual) Monocytes % Monocytes % 1 (Manual) Eosinophils % Eosinophils % 2 (Manual) Basophils % Basophils % 1 (Manual) Metamyelocytes % 6 H (manual) Myelocytes % 9 H (Manual) Nucleated Red 0.0 Blood Cells % Immature 0.010 Granulocytes # Neutrophils # Neutrophils # 0.6 L (Manual) Band Neutrophils # 1.2 H Lymphocytes 0.0 L (Manual) Lymphocytes # Monocytes # Monocytes # 0.0 L (Manual) Eosinophils # Basophils # Basophils # 0.0 (Manual) Metamyelocytes # 0.1 H Myelocytes # 0.2 H Nucleated Red Blood Cells # Platelet Estimate DECREASED Giant Platelets 2 H Polychromasia 3+ Hypochromasia 1+ Poikilocytosis 3+ Anisocytosis 3+ Macrocytosis 3+ Target Cells 1+ Prothrombin Time 26.6 #H Prothrombin Time 2.1 Ratio INR International 2.45 Normalized Ratio Activated 75.0 *H Partial Thrombopla st Time Sodium Level 137 Potassium Level 3.8 Chloride Level 109 # Carbon Dioxide 13 L Level Anion Gap 15 H Blood Urea 8 Nitrogen Creatinine 2.00 H Est Glomerular 35 L Filtrat Rate mL/min Glucose Level 29 #*L Hemoglobin A1c 5.1 Calcium Level 6.7 L Total Bilirubin 1.1 Direct Bilirubin 0.60 #H Indirect Bilirubin 0.5 Aspartate Amino 94 #H Transf (AST/SGOT) Alanine 40 Aminotransferase ( ALT/SGPT) Alkaline 52 Phosphatase Total Protein 4.2 L Albumin 2.0 L Globulin 2.20 Albumin/Globulin 0.90 Ratio Triglycerides 80 Level Cholesterol Level < 50 L LDL Cholesterol, Calculated HDL Cholesterol 10 L Cholesterol/HDL Ratio Thyroid 2.290 Stimulating Hormone (TSH) Test 03/29/18 04:30 03/29/18 08:16 03/29/18 08:22 03/29/18 08:42 Lactic Acid Level 13.3 *H 13.1 *H Phosphorus Level 5.7 H Magnesium Level 1.6 L Bedside Glucose 27 *L 123 White Blood Count 2.9 #L Red Blood Count 2.02 L Hemoglobin 6.2 *L Hematocrit 20.1 L Mean Corpuscular 99.5 Volume Mean Corpuscular 30.7 Hemoglobin Mean Corpuscular 30.8 L Hemoglobin Concent Red Cell 20.4 H Distribution Width Platelet Count 95 L Mean Platelet 10.6 H Volume Immature 9.200 H Granulocytes % Neutrophils % Segmented 12 L Neutrophils % (Manual) Band Neutrophils % 45 H (Manual) Lymphocytes % Lymphocytes % 12 L (Manual) Monocytes % Monocytes % 14 H (Manual) Eosinophils % Eosinophils % 1 (Manual) Basophils % Metamyelocytes % 7 H (manual) Myelocytes % 9 H (Manual) Nucleated Red 2 H Blood Cells % Immature 0.270 H Granulocytes # Neutrophils # Neutrophils # 0.4 L (Manual) Band Neutrophils # 1.3 H Lymphocytes 0.3 L (Manual) Lymphocytes # Monocytes # Monocytes # 0.4 (Manual) Eosinophils # Basophils # Metamyelocytes # 0.2 H Myelocytes # 0.2 H Nucleated Red Blood Cells # Platelet Estimate DECREASED Giant Platelets 2 H Polychromasia 1+ Hypochromasia 1+ Poikilocytosis 3+ Anisocytosis 3+ Macrocytosis 3+ Target Cells 1+ Ovalocytes 1+ Glucose Level 32 *L Consultation Date/Type/Reason Admit Date/Time Mar 28, 2018 at 14:14 Initial Consult Date 03/29/18 Exam/Review of Systems Vital Signs Vitals Vital Signs Date Temp Pulse Resp B/P (MAP) Pulse Ox O2 O2 Flow FiO2 Time Delivery Rate 03/29/18 125 20 97 Nasal 5.0 09:19 Cannula 03/29/18 94/83 (87) 07:45 03/29/18 97.8 04:00 Intake and Output 03/28/18 03/28/18 03/29/18 1515:00 23:00 07:00 IntakeIntake Total 4050 ml 639.573 ml 1665.396 ml BalanceBalance 4050 ml 639.573 ml 1665.396 ml Medications Medications Current Medications IV Flush (NS 3 ml) 3 ml PER PROTOCOL IV ; Start 03/28/18 at 16:00 Ondansetron HCl (Zofran Inj) 4 mg Q6H PRN IV NAUSEA AND/OR VOMITING Last administered on 03/29/18at 09:29; Admin Dose 4 MG; Start 03/28/18 at 16:00 Acetaminophen (Tylenol Tab) 650 mg Q6H PRN PO PAIN LEVEL 1-3 OR FEVER; Start 03/28/18 at 16:00 Acetaminophen/ Hydrocodone Bitart ([place] (5/325)) 1 tab Q6H PRN PO MODERATE PAIN LEVEL 4-6; Start 03/28/18 at 16:00 Morphine Sulfate (morphine) 2 mg Q4H PRN IV SEVERE PAIN LEVEL 7-10 Last administered on 03/28/18at 22:08; Admin Dose 2 MG; Start 03/28/18 at 16:00 Docusate Sodium (Colace) 100 mg Q12H PRN PO CONSTIPATION; Start 03/28/18 at 16:00 Magnesium Hydroxide (Milk Of Mag) 30 ml DAILY PRN PO CONSTIPATION; Start 03/28/18 at 16:00 Famotidine (Pepcid Iv) 20 mg DAILY IV Last administered on 03/29/18at 08:47; Admin Dose 20 MG; Start 03/28/18 at 21:00 Lorazepam (Ativan) 0.5 mg Q6H PRN IV ANXIETY; Start 03/28/18 at 16:00 Albuterol/ Ipratropium (Duoneb) 3 ml Q4H RESP THERAPY PRN HHN SHORTNESS OF BREATH Last administered on 03/29/18at 09:18; Admin Dose 3 ML; Start 03/28/18 at 16:00 Vancomycin HCl (Vanco Iv Per Pharmacy) VANCOMYCIN PER PHARMACY NOTE XX ; Start 03/28/18 at 16:00 Hydralazine HCl (Apresoline) 10 mg Q6H PRN IV ELEVATED BLOOD PRESSURE; Start 03/28/18 at 16:00 Nitroglycerin (Nitroglycerin (Sl Tab) 0.4 Mg) 1 tab Q5M PRN SL ANGINA; Start 03/28/18 at 16:00 Norepinephrine 32 mg/Dextrose 250 ml @ 0.47 mls/hr TITRATE IV Last administered on 03/29/18at 09:09; Admin Dose 13.59 MLS/HR; Start 03/28/18 at 17:00 Phenylephrine HCl 80 mg/Dextrose 250 ml @ 18.75 mls/ hr TITRATE IV Last administered on 03/29/18at 09:02; Admin Dose 48.75 MLS/HR; Start 03/28/18 at 18:00 Vancomycin HCl 250 ml @ 125 mls/hr Q24H IVPB ; Start 03/29/18 at 22:00 Dextrose (D50w Syringe) 50 ml IV PRN IV HYPOGLYCEMIA (BS<70) Last administered on 03/29/18at 08:47; Admin Dose 50 ML; Start 03/29/18 at 09:00 Vasopressin 60 unit/Dextrose 60 ml @ 0 mls/hr Q12H IV ; Start 03/29/18 at 10:00 Sodium Bicarbonate 150 meq/Dextrose 1,150 ml @ 150 mls/hr Q7H40M IV ; Start 03/29/18 at 11:00 Meropenem/Sodium Chloride 50 ml @ 100 mls/hr Q12 IVPB ; Start 03/29/18 at 10:00 Hydrocortisone (Solu-Cortef) 100 mg Q8 IV ; Start 03/29/18 at 14:00; Status UNV Thiamine HCl (Vitamin B1) 200 mg BID NGT ; Start 03/29/18 at 10:30; Status UNV Fentanyl 100 ml @ 5 mls/hr TITRATE IV ; Start 03/29/18 at 11:00; Status UNV Midazolam HCl 50 ml @ 2 mls/hr TITRATE IV ; Start 03/29/18 at 11:00; Status UNV JACKSON SANDHU NP Mar 29, 2018 10:53
[2018-03-29] MEDS: MIDAZOLAM (DRIP) 50 mg/50 mL 50 ML IV SCH (11:21)
[2018-03-29] MEDS: SODIUM BICARBONATE (IV ADD) 150 MEQ in DEXTROSE 5% 1,000 ML IV SCH ×2 (11:25→19:25)
--- NOTE | 2018-03-29 11:26 | CONS ---
Date/Time of Note Date/Time of Note DATE: 03/29/18 TIME: 11:10 Assessment/Plan Assessment/Plan Assessment/Plan Unfortunate man with history of gastric cancer although no treatment since surgery two years ago, which suggests that there was no obvious recurrence. Even if he had malignancy, no chemotherapy could be considered given the extremely poor performance status. The main issue is septic shock with multisystem failure. He is hypotensive and requiring pressor support, has respiratory failure and is on a ventilator, and has lab results consistent with renal, hepatic and marrow compromise. 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 RBC's are being transfused now and FFP is already ordered. I would add cryoprecipitate due to the low fibrinogen and will start Neupogen given the leucopenia. Unfortunately the various counts are likely to get worse unless there is a dramatic turn-around soon. Result Diagram: 03/29/1882103/29/18821 Results 24hrs Laboratory Tests Test 03/28/18 12:46 03/28/18 12:55 03/28/18 15:08 03/28/18 16:11 POC Venous Lactate 9.8 *H White Blood Count 1.7 L Red Blood Count 2.65 L Hemoglobin 8.2 L Hematocrit 24.9 L Mean Corpuscular 94.0 Volume Mean Corpuscular 30.9 Hemoglobin Mean Corpuscular 32.9 Hemoglobin Concent Red Cell 19.3 H Distribution Width Platelet Count 206 165 Mean Platelet 9.8 Volume Immature 0.600 H Granulocytes % Neutrophils % Segmented 25 L Neutrophils % (Manual) Band Neutrophils % 48 H (Manual) Lymphocytes % Lymphocytes % 4 L (Manual) Reactive 2 H Lymphocytes % (Manual) Monocytes % Monocytes % 3 (Manual) Eosinophils % Basophils % Metamyelocytes % 12 H (manual) Myelocytes % 7 H (Manual) Nucleated Red 1 H Blood Cells % Immature 0.010 Granulocytes # Neutrophils # Neutrophils # 0.4 L (Manual) Band Neutrophils # 0.8 H Lymphocytes 0.0 L (Manual) Lymphocytes # Reactive 0.0 Lymphocytes # Monocytes # Monocytes # 0.0 L (Manual) Eosinophils # Basophils # Metamyelocytes # 0.2 H Myelocytes # 0.1 H Nucleated Red Blood Cells # White Cell @See below Morphology Comment Platelet Estimate NORMAL Giant Platelets 5 H Polychromasia 1+ Hypochromasia 1+ Poikilocytosis 2+ Anisocytosis 2+ Macrocytosis 2+ Target Cells 1+ Red Cell @See below Morphology Comment Prothrombin Time 28.7 H 36.4 #H Prothrombin Time 2.2 2.8 Ratio INR International 2.70 3.66 Normalized Ratio Activated 49.2 H 63.[address] Time Sodium Level 131 L Potassium Level 4.3 Chloride Level 98 Carbon Dioxide 18 L Level Anion Gap 15 H Blood Urea 9 Nitrogen Creatinine 1.46 H Est Glomerular 50 L Filtrat Rate mL/min Glucose Level 79 Lactic Acid Level 13.0 *H 11.4 *H Calcium Level 7.2 L Total Bilirubin 0.5 Direct Bilirubin 0.00 Indirect Bilirubin 0.5 Aspartate Amino 33 Transf (AST/SGOT) Alanine 18 Aminotransferase ( ALT/SGPT) Alkaline 83 Phosphatase Troponin I < 0.012 Total Protein 4.1 L Albumin 1.4 L Globulin 2.70 Albumin/Globulin 0.51 Ratio Lipase < 10 L Urine Color MELO Urine Clarity CLOUDY A Urine pH 5.0 Urine Specific 1.019 [place] Urine Ketones TRACE A Urine Nitrite NEGATIVE Urine Bilirubin 1+ H Urine Urobilinogen 2+ H Urine Leukocyte NEGATIVE Esterase Urine Microscopic 5 RBC Urine Microscopic 5 WBC Urine Bacteria FEW A Urine Hyaline FEW A Casts Urine Mucus FEW A Urine Hemoglobin NEGATIVE Urine Random 461.11 H Creatinine Urine Random < 13 L Sodium Urine Glucose NEGATIVE Urine Total 34.0 H Protein Thrombin Time 20.6 H Fibrinogen 83.0 L Plasma Fibrin >10 and <40 H Degradation Produc ts D-Dimer 2498.97 H D-Dimer Comment Hemoglobin A1c 5.2 Free Thyroxine 1.32 Test 03/28/18 19:02 03/28/18 21:45 03/28/18 23:22 03/29/18 04:28 Lactic Acid Level 12.0 *H 12.3 *H 13.4 *H White Blood Count 2.3 #L Red Blood Count 2.11 #L Hemoglobin 6.6 *L Hematocrit 20.4 L Mean Corpuscular 96.7 Volume Mean Corpuscular 31.3 Hemoglobin Mean Corpuscular 32.4 Hemoglobin Concent Red Cell 20.3 H Distribution Width Platelet Count 117 #L Mean Platelet 10.5 H Volume Immature 0.400 Granulocytes % Neutrophils % Segmented 25 L Neutrophils % (Manual) Band Neutrophils % 53 H (Manual) Lymphocytes % Lymphocytes % 3 L (Manual) Monocytes % Monocytes % 1 (Manual) Eosinophils % Eosinophils % 2 (Manual) Basophils % Basophils % 1 (Manual) Metamyelocytes % 6 H (manual) Myelocytes % 9 H (Manual) Nucleated Red 0.0 Blood Cells % Immature 0.010 Granulocytes # Neutrophils # Neutrophils # 0.6 L (Manual) Band Neutrophils # 1.2 H Lymphocytes 0.0 L (Manual) Lymphocytes # Monocytes # Monocytes # 0.0 L (Manual) Eosinophils # Basophils # Basophils # 0.0 (Manual) Metamyelocytes # 0.1 H Myelocytes # 0.2 H Nucleated Red Blood Cells # Platelet Estimate DECREASED Giant Platelets 2 H Polychromasia 3+ Hypochromasia 1+ Poikilocytosis 3+ Anisocytosis 3+ Macrocytosis 3+ Target Cells 1+ Prothrombin Time 26.6 #H Prothrombin Time 2.1 Ratio INR International 2.45 Normalized Ratio Activated 75.0 *H Partial Thrombopla st Time Sodium Level 137 Potassium Level 3.8 Chloride Level 109 # Carbon Dioxide 13 L Level Anion Gap 15 H Blood Urea 8 Nitrogen Creatinine 2.00 H Est Glomerular 35 L Filtrat Rate mL/min Glucose Level 29 #*L Hemoglobin A1c 5.1 Calcium Level 6.7 L Total Bilirubin 1.1 Direct Bilirubin 0.60 #H Indirect Bilirubin 0.5 Aspartate Amino 94 #H Transf (AST/SGOT) Alanine 40 Aminotransferase ( ALT/SGPT) Alkaline 52 Phosphatase Total Protein 4.2 L Albumin 2.0 L Globulin 2.20 Albumin/Globulin 0.90 Ratio Triglycerides 80 Level Cholesterol Level < 50 L LDL Cholesterol, Calculated HDL Cholesterol 10 L Cholesterol/HDL Ratio Thyroid 2.290 Stimulating Hormone (TSH) Test 03/29/18 04:30 03/29/18 08:16 03/29/18 08:22 03/29/18 08:42 Lactic Acid Level 13.3 *H 13.1 *H Phosphorus Level 5.7 H Magnesium Level 1.6 L Bedside Glucose 27 *L 123 White Blood Count 2.9 #L Red Blood Count 2.02 L Hemoglobin 6.2 *L Hematocrit 20.1 L Mean Corpuscular 99.5 Volume Mean Corpuscular 30.7 Hemoglobin Mean Corpuscular 30.8 L Hemoglobin Concent Red Cell 20.4 H Distribution Width Platelet Count 95 L Mean Platelet 10.6 H Volume Immature 9.200 H Granulocytes % Neutrophils % Segmented 12 L Neutrophils % (Manual) Band Neutrophils % 45 H (Manual) Lymphocytes % Lymphocytes % 12 L (Manual) Monocytes % Monocytes % 14 H (Manual) Eosinophils % Eosinophils % 1 (Manual) Basophils % Metamyelocytes % 7 H (manual) Myelocytes % 9 H (Manual) Nucleated Red 2 H Blood Cells % Immature 0.270 H Granulocytes # Neutrophils # Neutrophils # 0.4 L (Manual) Band Neutrophils # 1.3 H Lymphocytes 0.3 L (Manual) Lymphocytes # Monocytes # Monocytes # 0.4 (Manual) Eosinophils # Basophils # Metamyelocytes # 0.2 H Myelocytes # 0.2 H Nucleated Red Blood Cells # Platelet Estimate DECREASED Giant Platelets 2 H Polychromasia 1+ Hypochromasia 1+ Poikilocytosis 3+ Anisocytosis 3+ Macrocytosis 3+ Target Cells 1+ Ovalocytes 1+ Glucose Level 32 *L Consultation Date/Type/Reason Admit Date/Time Date of Consultation: Mar 29, 2018 Type of Consult Oncology Reason for Consultation gastric cancer Requesting Provider: AMBERLY MARQUEZ Hx of Present Illness 52 yo man admitted for septic shock. He is doing very poorly and is currently on pressor support and intubated. There is a history of gastric cancer with gastrectomy done two years ago but no chemotherapy or radiation was apparently given since that time. Records are not available. Past Medical History Medical History: cancer, other (gastric cancer s/p resection 2014) Medications Current Medications IV Flush (NS 3 ml) 3 ml PER PROTOCOL IV ; Start 03/28/18 at 16:00 Ondansetron HCl (Zofran Inj) 4 mg Q6H PRN IV NAUSEA AND/OR VOMITING Last administered on 03/29/18at 09:29; Admin Dose 4 MG; Start 03/28/18 at 16:00 Acetaminophen (Tylenol Tab) 650 mg Q6H PRN PO PAIN LEVEL 1-3 OR FEVER; Start 03/28/18 at 16:00 Acetaminophen/ Hydrocodone Bitart (Mason (5/325)) 1 tab Q6H PRN PO MODERATE PAIN LEVEL 4-6; Start 03/28/18 at 16:00 Morphine Sulfate (morphine) 2 mg Q4H PRN IV SEVERE PAIN LEVEL 7-10 Last adm inistered on 03/28/18at 22:08; Admin Dose 2 MG; Start 03/28/18 at 16:00 Docusate Sodium (Colace) 100 mg Q12H PRN PO CONSTIPATION; Start 03/28/18 at 16:00 Magnesium Hydroxide (Milk Of Mag) 30 ml DAILY PRN PO CONSTIPATION; Start 03/28/18 at 16:00 Famotidine (Pepcid Iv) 20 mg DAILY IV Last administered on 03/29/18at 08:47; Admin Dose 20 MG; Start 03/28/18 at 21:00 Lorazepam (Ativan) 0.5 mg Q6H PRN IV ANXIETY; Start 03/28/18 at 16:00 Albuterol/ Ipratropium (Duoneb) 3 ml Q4H RESP THERAPY PRN HHN SHORTNESS OF BREATH Last administered on 03/29/18at 09:18; Admin Dose 3 ML; Start 03/28/18 at 16:00 Vancomycin HCl (Vanco Iv Per Pharmacy) VANCOMYCIN PER PHARMACY NOTE XX ; Start 03/28/18 at 16:00 Hydralazine HCl (Apresoline) 10 mg Q6H PRN IV ELEVATED BLOOD PRESSURE; Start 03/28/18 at 16:00 Nitroglycerin (Nitroglycerin (Sl Tab) 0.4 Mg) 1 tab Q5M PRN SL ANGINA; Start 03/28/18 at 16:00 Norepinephrine 32 mg/Dextrose 250 ml @ 0.47 mls/hr TITRATE IV Last administered on 03/29/18at 09:09; Admin Dose 13.59 MLS/HR; Start 03/28/18 at 17:00 Phenylephrine HCl 80 mg/Dextrose 250 ml @ 18.75 mls/ hr TITRATE IV Last administered on 03/29/18at 09:02; Admin Dose 48.75 MLS/HR; Start 03/28/18 at 18:00 Vancomycin HCl 250 ml @ 125 mls/hr Q24H IVPB ; Start 03/29/18 at 22:00 Dextrose (D50w Syringe) 50 ml IV PRN IV HYPOGLYCEMIA (BS<70) Last administered on 03/29/18at 08:47; Admin Dose 50 ML; Start 03/29/18 at 09:00 Vasopressin 60 unit/Dextrose 60 ml @ 0 mls/hr Q12H IV ; Start 03/29/18 at 10:00 Sodium Bicarbonate 150 meq/Dextrose 1,150 ml @ 150 mls/hr Q7H40M IV ; Start 03/29/18 at 11:00 Meropenem/Sodium Chloride 50 ml @ 100 mls/hr Q12 IVPB ; Start 03/29/18 at 10:00 Hydrocortisone (Solu-Cortef) 100 mg Q8 IV ; Start 03/29/18 at 14:00 Thiamine HCl (Vitamin B1) 200 mg BID NGT ; Start 03/29/18 at 10:30 Fentanyl 100 ml @ 5 mls/hr TITRATE IV ; Start 03/29/18 at 11:00 Midazolam HCl 50 ml @ 1 mls/hr TITRATE IV ; Start 03/29/18 at 11:00 Ascorbic Acid 1500 mg/Dextrose 53 ml @ 53 mls/hr Q6 IVPB ; Start 03/29/18 at 12:00 Allergies: Coded Allergies: No Known Allergy (Unverified , 03/28/18) Past Surgical History Past Surgical Hx: other (gastrectomy) Social History Alcohol Use: none Smoking Status: Never smoker Drug Use: none Exam/Review of Systems Vital Signs Vitals Vital Signs Date Temp Pulse Resp B/P (MAP) Pulse Ox O2 O2 Flow FiO2 Time Delivery Rate 03/29/18 125 20 97 Nasal 5.0 09:19 Cannula 03/29/18 94/83 (87) 07:45 03/29/18 97.8 04:00 Intake and Output 03/28/18 03/28/18 03/29/18 1515:00 23:00 07:00 IntakeIntake Total 4050 ml 639.573 ml 1665.396 ml BalanceBalance 4050 ml 639.573 ml 1665.396 ml Exam Constitutional: non-verbal Head: normocephalic ENMT: intubated, other (pallor) Neck: supple Respiratory: other (on respirator) Cardiovascular: regular rate and rhythm Gastrointestinal: soft, surgical scars Neurological: unresponsive Lymph: nl lymph nodes Medications Medications Current Medications IV Flush (NS 3 ml) 3 ml PER PROTOCOL IV ; Start 03/28/18 at 16:00 Ondansetron HCl (Zofran Inj) 4 mg Q6H PRN IV NAUSEA AND/OR VOMITING Last administered on 03/29/18at 09:29; Admin Dose 4 MG; Start 03/28/18 at 16:00 Acetaminophen (Tylenol Tab) 650 mg Q6H PRN PO PAIN LEVEL 1-3 OR FEVER; Start 03/28/18 at 16:00 Acetaminophen/ Hydrocodone Bitart (Mason (5/325)) 1 tab Q6H PRN PO MODERATE PAIN LEVEL 4-6; Start 03/28/18 at 16:00 Morphine Sulfate (morphine) 2 mg Q4H PRN IV SEVERE PAIN LEVEL 7-10 Last administered on 03/28/18at 22:08; Admin Dose 2 MG; Start 03/28/18 at 16:00 Docusate Sodium (Colace) 100 mg Q12H PRN PO CONSTIPATION; Start 03/28/18 at 16:00 Magnesium Hydroxide (Milk Of Mag) 30 ml DAILY PRN PO CONSTIPATION; Start 03/28/18 at 16:00 Famotidine (Pepcid Iv) 20 mg DAILY IV Last administered on 03/29/18at 08:47; Admin Dose 20 MG; Start 03/28/18 at 21:00 Lorazepam (Ativan) 0.5 mg Q6H PRN IV ANXIETY; Start 03/28/18 at 16:00 Albuterol/ Ipratropium (Duoneb) 3 ml Q4H RESP THERAPY PRN HHN SHORTNESS OF BREATH Last administered on 03/29/18at 09:18; Admin Dose 3 ML; Start 03/28/18 at 16:00 Vancomycin HCl (Vanco Iv Per Pharmacy) VANCOMYCIN PER PHARMACY NOTE XX ; Start 03/28/18 at 16:00 Hydralazine HCl (Apresoline) 10 mg Q6H PRN IV ELEVATED BLOOD PRESSURE; Start 03/28/18 at 16:00 Nitroglycerin (Nitroglycerin (Sl Tab) 0.4 Mg) 1 tab Q5M PRN SL ANGINA; Start 03/28/18 at 16:00 Norepinephrine 32 mg/Dextrose 250 ml @ 0.47 mls/hr TITRATE IV Last administere d on 03/29/18at 09:09; Admin Dose 13.59 MLS/HR; Start 03/28/18 at 17:00 Phenylephrine HCl 80 mg/Dextrose 250 ml @ 18.75 mls/ hr TITRATE IV Last administered on 03/29/18at 09:02; Admin Dose 48.75 MLS/HR; Start 03/28/18 at 18:00 Vancomycin HCl 250 ml @ 125 mls/hr Q24H IVPB ; Start 03/29/18 at 22:00 Dextrose (D50w Syringe) 50 ml IV PRN IV HYPOGLYCEMIA (BS<70) Last administered on 03/29/18at 08:47; Admin Dose 50 ML; Start 03/29/18 at 09:00 Vasopressin 60 unit/Dextrose 60 ml @ 0 mls/hr Q12H IV ; Start 03/29/18 at 10:00 Sodium Bicarbonate 150 meq/Dextrose 1,150 ml @ 150 mls/hr Q7H40M IV ; Start at 11:00 Meropenem/Sodium Chloride 50 ml @ 100 mls/hr Q12 IVPB ; Start 03/29/18 at 10:00 Hydrocortisone (Solu-Cortef) 100 mg Q8 IV ; Start 03/29/18 at 14:00 Thiamine HCl (Vitamin B1) 200 mg BID NGT ; Start 03/29/18 at 10:30 Fentanyl 100 ml @ 5 mls/hr TITRATE IV ; Start 03/29/18 at 11:00 Midazolam HCl 50 ml @ 1 mls/hr TITRATE IV ; Start 03/29/18 at 11:00 Ascorbic Acid 1500 mg/Dextrose 53 ml @ 53 mls/hr Q6 IVPB ; Start 03/29/18 at 12:00 BRENDAN DOMINGO MD Mar 29, 2018 11:21
[2018-03-29] MEDS ORDERED: ALBUMIN HUMAN 25% 100 ML ONE (11:39)
[2018-03-29] MEDS ORDERED: ALBUMIN HUMAN 25% 100 ML IV ONE (12:00)
[2018-03-29] MEDS ORDERED: FILGRASTIM 480 MCG INJ IVPB SCH (12:00)
--- NOTE | 2018-03-29 12:09 | NUR ---
SWer met w/ pt's family members to determine who'll make healthcare decisions as pt is intubated and will require additional tx's. Pt's sister stated "my brother's spouse will arrive later on this afternoon and she'll be the person that makes healthcare decisions (Deyanira Salazarar . Pt does not have an AD/DPOA thus, SWer provided pt's w/ a blank AHCD and requested that she give it to pt's when she arrives. CM aware, SWer to remain available for f/u and assistance as needed.
[2018-03-29] MEDS: MEROPENEM 1 GM/50ML(PMX) 50 ML IVPB SCH ×2 (12:16→20:52)
[2018-03-29] MEDS ORDERED: SOD CHLORIDE 0.9% IV SCH (13:00)
[2018-03-29] MEDS ORDERED: EPINEPHRINE IV SCH (13:00)
[2018-03-29] MEDS: ASCORBIC ACID IVPB SCH ×3 (13:02→23:27)
[2018-03-29] MEDS: DEXTROSE 5% IVPB SCH ×3 (13:02→23:27)
[2018-03-29] MEDS ORDERED: DEXTROSE 10% 1,000 ML IV SCH (13:30)
[2018-03-29] MEDS ORDERED: NA BICARBONATE 8.4% 50 ML SYG IV STA (14:07)
[2018-03-29] MEDS ORDERED: SOD CHLORIDE 0.9% 250 ML IV* ONE (14:11)
[2018-03-29] MEDS ORDERED: DEXTROSE 50% 50 ML SYRINGE IV ONE (14:30)
[2018-03-29] MEDS: HYDROCORTISONE 100 MG INJ IV SCH ×2 (14:46→21:45)
[2018-03-29] MEDS: THIAMINE 100 MG TAB NGT SCH ×2 (17:30→20:47)
--- NOTE | 2018-03-29 19:35 | CONS ---
Date/Time of Note Date/Time of Note DATE: 03/29/18 TIME: 19:28 Assessment/Plan Assessment/Plan Assessment/Plan very unfortunate 52 m with h/o gastric cancer s/p treatment 3 years ago presumablly in remission now admitted with * overwhelming gram negative sepsis: severe acidosis, svere hypotension despite multiple pressors/ nahco3 and abx * acute blood loss anemia: ? source/ possible retroperitoneal bleed/ r/o GIB/ now with dic. prbs, ffp and cryo per heme * respiratory failure on vent * juan antonio with profound acidosis. anuric. not a candidate for hd given severe hypotension bp 60s. cont volume resussitation and monitor uo and labs closely * severe DIC: ffp/ [employer] architect as needed * underlying edema/ hypoalbuminemia with large ascitis noted on ct. r/o underlying carcinomatosis. will need paracentesis and cytology to r/o metastatic malignancy if he survives * prognosis very poor Result Diagram: 03/29/18 1836 03/29/18 1102 Results 24hrs Laboratory Tests Test 03/28/18 21:45 03/28/18 23:22 03/29/18 04:28 03/29/18 04:30 Lactic Acid Level 12.3 *H 13.4 *H 13.3 *H White Blood Count 2.3 #L Red Blood Count 2.11 #L Hemoglobin 6.6 *L Hematocrit 20.4 L Mean Corpuscular 96.7 Volume Mean Corpuscular 31.3 Hemoglobin Mean Corpuscular 32.4 Hemoglobin Concen t Red Cell 20.3 H Distribution Width Platelet Count 117 #L Mean Platelet 10.5 H Volume Immature 0.400 Granulocytes % Neutrophils % Segmented 25 L Neutrophils % (Manual) Band Neutrophils 53 H % (Manual) Lymphocytes % Lymphocytes % 3 L (Manual) Monocytes % Monocytes % 1 (Manual) Eosinophils % Eosinophils % 2 (Manual) Basophils % Basophils % 1 (Manual) Metamyelocytes % 6 H (manual) Myelocytes % 9 H (Manual) Nucleated Red 0.0 Blood Cells % Immature 0.010 Granulocytes # Neutrophils # Neutrophils # 0.6 L (Manual) Band Neutrophils 1.2 H # Lymphocytes 0.0 L (Manual) Lymphocytes # Monocytes # Monocytes # 0.0 L (Manual) Eosinophils # Basophils # Basophils # 0.0 (Manual) Metamyelocytes # 0.1 H Myelocytes # 0.2 H Nucleated Red Blood Cells # Platelet Estimate DECREASED Giant Platelets 2 H Polychromasia 3+ Hypochromasia 1+ Poikilocytosis 3+ Anisocytosis 3+ Macrocytosis 3+ Target Cells 1+ Prothrombin Time 26.6 #H Prothrombin Time 2.1 Ratio INR International 2.45 Normalized Ratio Activated 75.0 *H Partial Thrombopl ast Time Sodium Level 137 Potassium Level 3.8 Chloride Level 109 # Carbon Dioxide 13 L Level Anion Gap 15 H Blood Urea 8 Nitrogen Creatinine 2.00 H Est Glomerular 35 L Filtrat Rate mL/min Glucose Level 29 #*L Hemoglobin A1c 5.1 Calcium Level 6.7 L Total Bilirubin 1.1 Direct Bilirubin 0.60 #H Indirect 0.5 Bilirubin Aspartate Amino 94 #H Transf (AST/SGOT) Alanine 40 Aminotransferase (ALT/SGPT) Alkaline 52 Phosphatase Total Protein 4.2 L Albumin 2.0 L Globulin 2.20 Albumin/Globulin 0.90 Ratio Triglycerides 80 Level Cholesterol Level < 50 L LDL Cholesterol, Calculated HDL Cholesterol 10 L Cholesterol/HDL Ratio Thyroid 2.290 Stimulating Hormone (TSH) Phosphorus Level 5.7 H Magnesium Level 1.6 L Test 03/29/18 08:16 03/29/18 08:22 03/29/18 08:42 03/29/18 10:57 Bedside Glucose 27 *L 123 White Blood Count 2.9 #L Red Blood Count 2.02 L Hemoglobin 6.2 *L Hematocrit 20.1 L Mean Corpuscular 99.5 Volume Mean Corpuscular 30.7 Hemoglobin Mean Corpuscular 30.8 L Hemoglobin Concen t Red Cell 20.4 H Distribution Width Platelet Count 95 L Mean Platelet 10.6 H Volume Immature 9.200 H Granulocytes % Neutrophils % Segmented 12 L Neutrophils % (Manual) Band Neutrophils 45 H % (Manual) Lymphocytes % Lymphocytes % 12 L (Manual) Monocytes % Monocytes % 14 H (Manual) Eosinophils % Eosinophils % 1 (Manual) Basophils % Metamyelocytes % 7 H (manual) Myelocytes % 9 H (Manual) Nucleated Red 2 H Blood Cells % Immature 0.270 H Granulocytes # Neutrophils # Neutrophils # 0.4 L (Manual) Band Neutrophils 1.3 H # Lymphocytes 0.3 L (Manual) Lymphocytes # Monocytes # Monocytes # 0.4 (Manual) Eosinophils # Basophils # Metamyelocytes # 0.2 H Myelocytes # 0.2 H Nucleated Red Blood Cells # Platelet Estimate DECREASED Giant Platelets 2 H Polychromasia 1+ Hypochromasia 1+ Poikilocytosis 3+ Anisocytosis 3+ Macrocytosis 3+ Target Cells 1+ Ovalocytes 1+ Glucose Level 32 *L Lactic Acid Level 13.1 *H Blood Gas Blood arterial Specimen Source Arterial Blood 03/29/2018 11:40: Date Drawn 09 AM Arterial Blood pH 7.146 *L (Temp corrected) Arterial Blood 25.7 L pCO2 (Temp correct) Arterial Blood 389.6 H pO2 (Temp corrected) Arterial Blood 8.7 *L HCO3 Arterial Blood -18.6 L Base Excess Arterial Blood 98.4 H Oxygen Saturation Roby Test ACCEPTAB Arterial Blood Left Radial Gas Puncture Site Arterial 0.3 Blood Carboxyhemo globin Arterial Blood 0.2 Methemoglobin Blood Gas A-a O2 297.7 H Differential Oxyhemoglobin 97.9 Percent Blood Gas 37.0 Temperature Blood Gas 30.0 Respiration Rate Blood Gas Actual 33 Respiration Rate Blood Gas VENT - AC Modality FiO2 100.0 Blood Gas Tidal 450.0 Volume Blood Gas Low 5.0 PEEP Setting Blood Gas RN Gely VIDAL Critical Value Read Back Blood Gas AT Notified Whom Blood Gas 03/29/2018 11:54: Notified Time 56 AM Test 03/29/18 11:02 03/29/18 13:36 03/29/18 13:45 03/29/18 16:18 Sodium Level 137 Potassium Level 4.0 Chloride Level 107 Carbon Dioxide 10 L Level Anion Gap 20 H Blood Urea 8 Nitrogen Creatinine 1.89 H Est Glomerular 37 L Filtrat Rate mL/min Glucose Level 30 *L Lactic Acid Level 14.7 *H Calcium Level 6.7 L Total Bilirubin 1.3 Direct Bilirubin 0.70 H Indirect 0.6 Bilirubin Aspartate Amino 110 H Transf (AST/SGOT) Alanine 44 Aminotransferase (ALT/SGPT) Alkaline 47 Phosphatase Total Protein 4.9 L Albumin 2.6 L Globulin 2.30 Albumin/Globulin 1.13 Ratio Hemoglobin 6.2 *L Hematocrit 20.1 L Bedside Glucose 120 242 H Test 03/29/18 18:36 03/29/18 18:40 Hemoglobin 9.3 #L Hematocrit 30.4 #L Bedside Glucose 231 H Consultation Date/Type/Reason Admit Date/Time Mar 28, 2018 at 14:14 Initial Consult Date 03/29/18 Requesting Provider: RAHI,AMBERLY S. 24 HR Interval Summary Free Text/Dictation critically ill. on multiple pressors. on vent. BP cont to be very low. abx adjusted for gm negative bactermia, DIC with large hematoma noted. hb dropped to 6 and thus far has recieved 2 units prbc. anuric Exam/Review of Systems Vital Signs Vitals Vital Signs Date Temp Pulse Resp B/P (MAP) Pulse Ox O2 O2 Flow FiO2 Time Delivery Rate 03/29/18 100 18:00 03/29/18 122 32 17:20 03/29/18 58/43 (48) 15:45 03/29/18 Mechanical 15:00 Ventilator 03/29/18 97.6 12:00 03/29/18 98 10:32 03/29/18 5.0 09:19 Intake and Output 03/28/18 03/28/18 03/29/18 1515:00 23:00 07:00 IntakeIntake Total 4050 ml 639.573 ml 1665.396 ml OutputOutput Total 5 ml BalanceBalance 4050 ml 639.573 ml 1660.396 ml Exam Constitutional: other (unresponsive. orally intubated on vent) Head: normocephalic Neck: supple Respiratory: diminished breath sounds Cardiovascular: edema (3+ edema/ ansaraca/ large hematoma noted rt flank), other (tachycardia) Gastrointestinal: distended Medications Medications Current Medications IV Flush (NS 3 ml) 3 ml PER PROTOCOL IV ; Start 03/28/18 at 16:00 Ondansetron HCl (Zofran Inj) 4 mg Q6H PRN IV NAUSEA AND/OR VOMITING Last administered on 03/29/18at 09:29; Admin Dose 4 MG; Start 03/28/18 at 16:00 Acetaminophen (Tylenol Tab) 650 mg Q6H PRN PO PAIN LEVEL 1-3 OR FEVER; Start 03/28/18 at 16:00 Acetaminophen/ Hydrocodone Bitart (Marvin (5/325)) 1 tab Q6H PRN PO MODERATE PAIN LEVEL 4-6; Start 03/28/18 at 16:00 Morphine Sulfate (morphine) 2 mg Q4H PRN IV SEVERE PAIN LEVEL 7-10 Last administered on 03/28/18at 22:08; Admin Dose 2 MG; Start 03/28/18 at 16:00 Docusate Sodium (Colace) 100 mg Q12H PRN PO CONSTIPATION; Start 03/28/18 at 16:00 Magnesium Hydroxide (Milk Of Mag) 30 ml DAILY PRN PO CONSTIPATION; Start 03/28/18 at 16:00 Famotidine (Pepcid Iv) 20 mg DAILY IV Last administered on 03/29/18at 08:47; Admin Dose 20 MG; Start 03/28/18 at 21:00 Lorazepam (Ativan) 0.5 mg Q6H PRN IV ANXIETY; Start 03/28/18 at 16:00 Albuterol/ Ipratropium (Duoneb) 3 ml Q4H RESP THERAPY PRN HHN SHORTNESS OF BREATH Last administered on 03/29/18at 09:18; Admin Dose 3 ML; Start 03/28/18 at 16:00 Vancomycin HCl (Vanco Iv Per Pharmacy) VANCOMYCIN PER PHARMACY NOTE XX ; Start 03/28/18 at 16:00 Hydralazine HCl (Apresoline) 10 mg Q6H PRN IV ELEVATED BLOOD PRESSURE; Start 03/28/18 at 16:00 Nitroglycerin (Nitroglycerin (Sl Tab) 0.4 Mg) 1 tab Q5M PRN SL ANGINA; Start 03/28/18 at 16:00 Norepinephrine 32 mg/Dextrose 250 ml @ 0.47 mls/hr TITRATE IV Last administered on 03/29/18at 09:09; Admin Dose 13.59 MLS/HR; Start 03/28/18 at 17:00 Phenylephrine HCl 80 mg/Dextrose 250 ml @ 18.75 mls/ hr TITRATE IV Last administered on 03/29/18at 17:55; Admin Dose 56.25 MLS/HR; Start 03/28/18 at 18:00 Vancomycin HCl 250 ml @ 125 mls/hr Q24H IVPB ; Start 03/29/18 at 22:00 Dextrose (D50w Syringe) 50 ml IV PRN IV HYPOGLYCEMIA (BS<70) Last administered on 03/29/18at 13:02; Admin Dose 50 ML; Start 03/29/18 at 09:00 Vasopressin 60 unit/Dextrose 60 ml @ 0 mls/hr Q12H IV Last administered on 03/29/18at 11:11; Admin Dose 2.4 MLS/HR; Start 03/29/18 at 10:00 Sodium Bicarbonate 150 meq/Dextrose 1,150 ml @ 150 mls/hr Q7H40M IV Last administered on 03/29/18 19:25; Admin Dose 150 MLS/HR; Start 03/29/18 at 11:00 Meropenem/Sodium Chloride 50 ml @ 100 mls/hr Q12 IVPB Last administered on 03/29/18 12:16; Admin Dose 100 MLS/HR; Start 03/29/18 at 10:00 Hydrocortisone (Solu-Cortef) 100 mg Q8 IV Last administered on 03/29/18 14:46; Admin Dose 100 MG; Start 03/29/18 at 14:00 Thiamine HCl (Vitamin B1) 200 mg BID NGT ; Start 03/29/18 at 10:30 Fentanyl 100 ml @ 5 mls/hr TITRATE IV Last administered on 03/29/18 11:38; Admin Dose 5 MLS/HR; Start 03/29/18 at 11:00 Midazolam HCl 50 ml @ 1 mls/hr TITRATE IV Last administered on 03/29/18 11:21; Admin Dose 1 MLS/HR; Start 03/29/18 at 11:00 Ascorbic Acid 1500 mg/Dextrose 53 ml @ 53 mls/hr Q6 IVPB Last administered on 03/29/18 17:52; Admin Dose 53 MLS/HR; Start 03/29/18 at 12:00 Filgrastim (Neupogen) 480 mcg DAILY IVPB Last administered on 03/29/18 13:03; Admin Dose 480 MCG; Start 03/29/18 at 12:00 Epinephrine 16 mg/ Sodium Chloride 262 ml @ 0.98 mls/hr TITRATE IV Last administered on 03/29/18 14:18; Admin Dose 9.83 MLS/HR; Start 03/29/18 at 13:00 Dextrose 1,000 ml @ 25 mls/hr Q24H IV Last administered on 03/29/18 14:22; Admin Dose 25 MLS/HR; Start 03/29/18 at 13:30; Status Hold DEBBIE LOCKWOOD MD Mar 29, 2018 19:35
--- NOTE | 2018-03-29 19:42 | NUR ---
EOSS hemodynamically unstable w persistent hypotension despite Vasopressin and Epinephrine drips added to Levophed and Neosyneprine drips all at max doses, ST 120-130s throughout , intubated at [address] Lira with poor hand and ear probe O2 sat signal but pO2 on ABG 389, tachypneic 30s-high 30s on Fentanyl and Versed low doses ok'd by Dr Lira, 3 units PRBC / 1 unit FFP/ 1 unit cryoprecipitate yet generalized petechiae and hematoma on R side of abdomen worsened--> Michelle Rinaldi/Benita/Justin aware, latest Hgb 9.3 , MDs also aware no u.o.p/ elevated lactic and hypoglycemia x 2 episodes--> D50and D10 started, BS 200s after steroid started, kept on NaHco3 drip as ordered. Family aware of critical status as updated by Dr Lira, emotional support provided, remains FULL code, endorsed for continued care and 1 more unit PRBC and FFP to give.
--- NOTE | 2018-03-29 20:55 | NUR ---
[facility]: Spoke with Itzel. Patient is not a candidate for organ donation. Possible tissue donation. Reference number: [id number] Will call back with cardiac time.
--- NOTE | 2018-03-29 21:01 | NUR ---
pulse ox not registering on monitor. multiple sites on body checked in attempt to capture pulse ox and still no readings. RT suggested we change vent settings to pressure control telephone call to dr. mckeon to discuss pts status, dr. mckeon does not want to change vent settings and no abg. dr. barnhart rounded and gave orders to start dopamine drip
[2018-03-29] MEDS ORDERED: DOPamine 800 MG in DEXTROSE 5% 230 ML IV SCH (21:30)
[2018-03-29] MEDS ORDERED: VANCOMYCIN 1 GM 250 ML IVPB SCH (22:00)
--- NOTE | 2018-03-29 22:29 | EN ---
Date/Time of Note Date/Time of Note DATE: 03/29/18 TIME: 22:26 Event Note Medicine Medicine Event Note Based on wishes, code status has been changed to DNR. Son, daughter, multiple other family members and nurses were at bedside when I was talking to . Respiratory therapist helped with translation. . ELIZABETH FRASER MD Mar 29, 2018 22:29
--- NOTE | 2018-03-29 22:50 | NUR ---
at bedside and decided to change code status to no code, dr barnhart returned to bedside to discuss code status. would like to make the patient a no code status. order of no code entered.
[2018-03-30] VITALS (13 sets, daily range): BP systolic 30–53; BP diastolic 11–22; PULSE 0–111; RESP 25–34
[2018-03-30] MEDS: MIDAZOLAM (DRIP) 50 mg/50 mL 50 ML IV SCH (00:39)
--- NOTE | 2018-03-30 02:07 | NUR ---
Pt asystole on [address] Dakota nielson notified of rhythm. Here to see patient at 0248 pronounced patient as . 0258 call to legal file clerk and [facility] to report .
--- NOTE | 2018-03-30 02:58 | NUR ---
Pt at 0248. Order to terminally extubate per Dr Duncan's order, RN at bedside.
--- NOTE | 2018-03-31 14:37 | DES ---
Date/Time of Note Date/Time of Note DATE: 03/31/18 TIME: 14:28 Discharge/ Summary Admission/Discharge Info Admit Date/Time Mar 28, 2018 at 14:14 Final Diagnosis 1. Refractory Septic Shock--likely due to gram negative mita sepsis, possibly inta-abdominal source vs. lung and less likely urinary. Additionally, there may be a hypovolemic component and he is likely loosing blood as a result of his coagulopathy 2. Severe Lactic Acidosis 2/2 #1 3. ARF--likely pre-renal v. ATN 4. Hypoglycemia--due to profound end-organ failure 5. Anemia--concern for active hemorrhage 6. Gastric Cancer--status unknown 7. DIC Preliminary Cause of 1. Res distress - minutes 2. cardiac arrest (asystole) - minutes 3. septic shock - secondary to E. Coli blood infection - days Admit History An unfortunate 52-year-old man with a history of gastric carcinoma status post gastrectomy a few years ago who presents today with vomiting and dehydration, syncopal event and with 1 month increasing bilateral lower extremity edema. Per family patient followed up at [facility] a few days ago and apparently "everything appeared to be normal". However patient went to the same ER 2 days ago, after complaining of lower extremity swelling, but was sent home after family again says that "everything appeared to be okay". In any event the patient came back today with the current symptoms as mentioned above. No upper or lower GI bleeding, diarrhea or constipation, arthralgias or myalgias. However when the patient came in he had significant lab abnormalities including fever of 104, hypotension systolic in the 70s, given 3-4 L of IV fluids in the ER, now on pressor support. Also tachycardic heart rate in the 120-130range. On CT scan patient also has findings of left lower lobe infiltrate, lactic acid was severely elevated initially 9, now 13. Central line has been placed. Patient also has renal insufficiency creatinine 1.4, and has been evaluated by the renal team as well was started patient on albumin in addition to the above o rders. Hospital Course Pt was admitted to the ICU. Seen by renal, pulm, ID, and Heme/Onc teams. Pt found to be in severe septic shock, likely sec to E.Coli bacteremia and possible LLL PNA. Placed on pressor support. IVF's also given as well as broad spectrum Abx. Unfortunately pt's condition detoriated despite these treatments along with IVF's with bicarb for his severe acidosis, along with albumin given. Pt 's blood pressure dropped even further and more pressor's were added to no avail. Pt also found with elevated INR and overall DIC - received FFP and pRBC transfusions for this. Early AM on 03/30/18 pt's family made pt DNR code status given worsening medical condition. Pt found to be asystole despite being on 5 pressors maxed out. Pt at 2:48 AM on 03/30/18. AMBERLY MARQUEZ Mar 31, 2018 14:37
== END 2018-03-30 02:48 | disposition expired | DRG 871 ==
LOC: E/R 12:18 → ICU 14:14
PROVIDERS: ADMIT Hospitalist; ATTEND Hospitalist
PROC: 02HV33Z Insertion of Infusion Device into Superior Vena Cava, Percutaneous Approach (ICD-10-PCS; 2018-03-28)
PROC: B546ZZA Ultrasonography of Right Subclavian Vein, Guidance (ICD-10-PCS; 2018-03-28)
PROC: 5A1935Z Respiratory Ventilation, Less than 24 Consecutive Hours (ICD-10-PCS; principal; 2018-03-29)
PROC: 0BH17EZ Insertion of Endotracheal Airway into Trachea, Via Natural or Artificial Opening (ICD-10-PCS; 2018-03-29)
PROC: 30233K1 Transfusion of Nonautologous Frozen Plasma into Peripheral Vein, Percutaneous Approach (ICD-10-PCS; 2018-03-29)
PROC: 30233N1 Transfusion of Nonautologous Red Blood Cells into Peripheral Vein, Percutaneous Approach (ICD-10-PCS; 2018-03-29)
PROC: 30233M1 Transfusion of Nonautologous Plasma Cryoprecipitate into Peripheral Vein, Percutaneous Approach (ICD-10-PCS; 2018-03-29)
PROC: 4A033R1 Measurement of Arterial Saturation, Peripheral, Percutaneous Approach (ICD-10-PCS; 2018-03-29)
DX: A41.51 Sepsis due to Escherichia coli [E. coli] (principal); R65.21 Severe sepsis with septic shock; E43 Unspecified severe protein-calorie malnutrition; D65 Disseminated intravascular coagulation [defibrination syndrome]; J96.01 Acute respiratory failure with hypoxia; J18.9 Pneumonia, unspecified organism; N17.0 Acute kidney failure with tubular necrosis; E87.1 Hypo-osmolality and hyponatremia; E87.2 Acidosis; D62 Acute posthemorrhagic anemia; R18.8 Other ascites; I46.9 Cardiac arrest, cause unspecified; I10 Essential (primary) hypertension; D70.9 Neutropenia, unspecified; E16.2 Hypoglycemia, unspecified; R19.7 Diarrhea, unspecified; D69.59 Other secondary thrombocytopenia; K76.0 Fatty (change of) liver, not elsewhere classified; Z92.21 Personal history of antineoplastic chemotherapy; Z92.3 Personal history of irradiation; Z90.3 Acquired absence of stomach [part of]; Z85.028 Personal history of other malignant neoplasm of stomach
CPT/HCPCS: 31500; 36415; 36430; 36600; 71045; 73510; 74176; 80053; 80061; 81001; 81003; 82803; 82947; 82962; 83036; 83605; 83690; 83735; 84100; 84155; 84300; 84439; 84443; 84484; 85014; 85018; 85025; 85049; 85362; 85378; 85384; 85610; 85670; 85730; 86850; 86900; 86901; 86920; 87040; 87075; 87081; 87086; 93005; 94002; 94003; 94640; 94664; 94770; 96365; 96375; J0171; J0692; J0696; J1265; J1720; J2185; J2250; J2270; J2405; J2765; J3010; J3370; J7030; J7040; J7042; J7050; J7070; P9016; P9047; P9059